=== PATIENT | male | born 1960 | race Hispanic/Latino ===

== ENCOUNTER 2019-03-03 21:36 | Emergency (ER) | payer MEDICARE ==
[2019-03-03] MEDS ORDERED: NA CHLORIDE 0.9% 2,000 ML ONE (22:15)
[2019-03-03] MEDS ORDERED: HYDROCODONE/APAP 5/325 MG TAB ONE (22:15)
[2019-03-03 22:42] LABS: Absolute Lymphocytes (CBC) 1.8 K/uL (0.7-4.9); Basophils % 0.5 % (0-1.3); Hematocrit 41.3 % (39.6-49.0); Lymphocytes % 15.7 % (15.3-44.8); MPV 8.5 fL (7.6-11.3); RBC Red Blood Cell Count 4.66 M/uL (4.33-5.43)
[2019-03-03 22:51] LABS: BUN Blood Urea Nitrogen 27 mg/dL (7-18); Bicarbonate 23 mmol/L (21-32); Glucose Level 155 mg/dL (74-106); Potassium 3.6 mmol/L (3.5-5.1); Sodium Level 132 mmol/L (136-145)
[2019-03-03] MEDS ORDERED: CIPROFLOXACIN 400mg IV 400 MG/200 ML BAG IV ONE (23:34)
[2019-03-03] MEDS ORDERED: KETOROLAC 30 MG/ML INJ ONE (23:34)
--- NOTE | 2019-03-04 00:35 | EDPHYS ---
Physician Documentation [facility] Name: Josh Sanchez Age: 59 yrs Sex: Male : 1960 Arrival Date: 03/03/2019 Time: 21:38 Bed 13 Private MD: ED Physician Shukri Chapa HPI: 03/03 22:06 This 59 yrs old Male presents to ER via Ambulatory with complaints of Fever, rn Bodyache. 22:06 The patient reports fever, not measured (subjective). Onset: The symptoms/episode rn began/occurred yesterday. Modifying factors: there are no obvious modifying factors. Associated signs and symptoms: Pertinent positives: arthralgias, chills, Pertinent negatives: abdominal pain, altered mental status, chest pain, cough, headache, hemoptysis, runny nose, skin rash, shortness of breath, swelling, vomiting. Severity of symptoms: At their worst the symptoms were mild in the emergency department the symptoms are unchanged. The patient has experienced similar episodes in the past. Reports came "for everything". States has had 2-3 weeks of increased joint pains, states has bad arthritis, and has been like this for years, worse over last 3 weeks, no focal joint pain or problems. Also reports feeling feverish since yesterday, no runny nose/ear pain/chest pain/abd pain/cough/sob/rash. Reports doesn't take diabetic meds as prescribed, and glucose has been running high. States normal for his glucose to run in 300s-500s. Only on metformin and doesn't take it regularly. . Historical: - Allergies: 22:06 No Known Allergies; lp1 - Home Meds: 22:06 Metformin Oral [Active]; Glimepiride Oral [Active]; lp1 - PMHx: 22:06 Diabetes - NIDDM; lp1 - PSHx: 22:06 Hernia repair; lp1 - Immunization history:: Adult Immunizations up to date. - Social history:: Smoking status: Patient/guardian denies using tobacco. - Ebola Screening: : No symptoms or risks identified at this time. - Family history:: not pertinent. - Hospitalizations: : No recent hospitalization is reported. 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 Exam: 22:06 Constitutional: This is a well developed, well nourished patient who is awake, alert, rn and in no acute distress. Head/Face: Normocephalic, atraumatic. Eyes: Pupils equal round and reactive to light, extra-ocular motions intact. Lids and lashes normal. Conjunctiva and sclera are non-icteric and not injected. Cornea within normal limits. Periorbital areas with no swelling, redness, or edema. ENT: dry MM, no swelling or lesions. Neck: Trachea midline, no thyromegaly or masses palpated, and no cervical lymphadenopathy. Supple, full range of motion without nuchal rigidity, or vertebral point tenderness. No Meningismus. Cardiovascular: Tachycardic, regular, no murmur Respiratory: Lungs have equal breath sounds bilaterally, clear to auscultation. No increased work of breathing, no retractions or nasal flaring. Abdomen/GI: soft, non-tender Skin: Warm, dry, no evidence of cellulitis. MS/ Extremity: Pulses equal, no cyanosis. Neurovascular intact. Full, normal range of motion. Equal circumference. Neuro: Awake and alert, GCS 15, oriented to person, place, time, and situation. Cranial nerves II-XII grossly intact. Motor strength 5/5 in all extremities. Sensory grossly intact. Cerebellar exam normal. Normal gait. 22:44 ECG was reviewed by the Attending Physician. rn Vital Signs: 22:05 BP 145 / 93; Pulse 128; Resp 18; Temp 99.2(O); Pulse Ox 100% on R/A; Weight 104.33 kg; lp1 Height 5 ft. 6 in. (167.64 cm); Pain 8/10; 23:08 BP 130 / 80; Pulse 113; Resp 16; Pulse Ox 97% on R/A; jb4 23:45 BP 136 / 81; Pulse 109; Resp 16; Pulse Ox 97% on R/A; jb4 03/04 01:15 BP 136 / 82; Pulse 100; Resp 16; Pulse Ox 97% on R/A; jb4 03/03 22:05 Body Mass Index 37.12 (104.33 kg, 167.64 cm) lp1 MDM: 03/03 21:55 Patient medically screened. rn 23:50 Differential diagnosis: viral Infection, bacterial infection, URI, UTI. Data reviewed: rn vital signs, nurses notes, lab test result(s), EKG, and as a result, I will discharge patient. Counseling: I had a detailed discussion with the patient and/or guardian regarding: the historical points, exam findings, and any diagnostic results supporting the discharge/admit diagnosis, lab results, the need for outpatient follow up, to return to the emergency department if symptoms worsen or persist or if there are any questions or concerns that arise at home. Response to treatment: the patient's symptoms have mildly improved after treatment, and as a result, I will discharge patient. Special discussion: I discussed with the patient/guardian in detail that at this point there is no indication for admission to the hospital. It is understood, however, that if the symptoms persist or worsen the patient needs to return immediately for re-evaluation. Based on the history and exam findings, there is no indication for further emergent testing or inpatient evaluation. 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 I discussed with the patient/guardian the need to see the primary care provider for further evaluation of the symptoms. ED course: + UTI, glucose only 170 and neg ketones, no acidosis, improving HR with fluids. Will dc home with abx and return precautions. Recommended fluids, taking diabetic medication, and f/u with pcp for further care. Chronic arthritis that was worse today, told him narcotic pain medication not the solution at this point, and if motrin and other anti-inflammatories dont work then pain management would be in his future, especially given that there have not been any acute joint changes. . 03/03 22:06 Order name: Ketone, Serum rn 03/03 22:06 Order name: CBC with Diff rn 03/03 22:06 Order name: Basic Metabolic Panel; Complete Time: 23:05 rn 03/03 22:06 Order name: Flu; Complete Time: 22:49 rn 03/03 22:06 Order name: Strep; Complete Time: 22:49 rn 03/03 22:06 Order name: Acetone Level; Complete Time: 23:05 EDMS 03/03 22:06 Order name: CBC with Automated Diff; Complete Time: 22:49 EDMS 03/03 22:09 Order name: NOVA jb4 03/03 22:09 Order name: Glucose, Ancillary (Novameter); Complete Time: 22:44 EDMS 03/03 22:50 Order name: Throat Culture EDMS 03/03 23:29 Order name: Urine Dipstick--Ancillary (enter results) em1 03/03 22:06 Order name: IV Start; Complete Time: 22:30 rn 03/03 22:06 Order name: Glucose Level; Complete Time: 22:07 rn 03/03 22:06 Order name: Urine Dipstick-Ancillary (obtain specimen); Complete Time: 23:29 rn 03/03 22:06 Order name: EKG; Complete Time: 22:07 rn 03/03 22:06 Order name: EKG - Nurse/Tech; Complete Time: 22:30 rn EC:44 Rate is 115 beats/min. Rhythm is regular. QRS [place] is Normal. SD interval is normal. rn QRS interval is normal. QT interval is normal. No Q waves. T waves are Normal. No ST changes noted. Clinical impression: Sinus tachycardia. Interpreted by me. Reviewed by me. Administered Medications: 22:06 CANCELLED (Duplicate Order): Tylenol 650 mg PO once rn 22:35 Drug: NS 0.9% 1000 ml Route: IV; Rate: 1000 ml; Site: left antecubital; 4 03/04 00:44 Follow up: Response: No adverse reaction; IV Status: Completed infusion; IV Intake: jb4 1000ml 03/03 22:35 Drug: NS 0.9% 1000 ml Route: IV; Rate: 1000 ml; Site: left antecubital; jb4 03/04 00:44 Follow up: Response: No adverse reaction; IV Status: Completed infusion; IV Intake: jb4 1000ml 03/03 22:35 Drug: [place] 5 mg-325 mg 2 tabs Route: PO; jb4 23:00 Follow up: Response: No adverse reaction 4 23:46 Drug: TORadol - Ketorolac 15 mg Route: IVP; Site: left antecubital; jb4 03/04 00:10 Follow up: Response: No adverse reaction; Pain is decreased jb4 03/03 23:47 Drug: Cipro 400 mg Volume: 200 ml; Route: IVPB; Infused Over: 60 mins; Site: left jb4 antecubital; 03/04 00:47 Follow up: IV Status: Completed infusion; IV Intake: 200ml 4 00:43 Drug: NS 0.9% 500 ml Route: IV; Rate: bolus; Site: left antecubital; 4 01:15 Follow up: Response: No adverse reaction; IV Status: Completed infusion; IV Intake: jb4 500ml Disposition: 03/03/19 23:54 Discharged to Home. Impression: Urinary tract infection, site not specified, Dehydration, Osteoarthritis, unspecified site. - Condition is Stable. - Discharge Instructions: Arthritis, Dehydration, Adult, Urinary Tract Infection, Adult. - Prescriptions for Cipro 500 mg Oral Tablet - take 1 tablet by ORAL route every 12 hours for 10 days; 20 tablet. - Medication Reconciliation Form, Thank You Letter, Antibiotic Education, Prescription Opioid Use form. - Follow up: Private Physician; When: As needed; Reason: Recheck today's complaints, Re-evaluation by your physician. - Problem is an ongoing problem. - Symptoms have improved. Signatures: Dispatcher [employer] EDMS Shukri Chapa MD MD rn Pena, Laura, RN RN lp1 Ming Lim RN RN jb4 Corrections: (The following items were deleted from the chart) 03/03 22:06 22:06 Tylenol 650 mg PO once ordered. rn mony 03/04 01:32 03/03 23:54 03/03/2019 23:54 Discharged to Home. Impression: Urinary tract infection, jb4 site not specified; Dehydration; Osteoarthritis, unspecified site. Condition is Stable. Forms are Medication Reconciliation Form, Thank You Letter, Antibiotic Education, Prescription Opioid Use. Follow up: Private Physician; When: As needed; Reason: Recheck today's complaints, Re-evaluation by your physician. Problem is an ongoing problem. Symptoms have improved. rn
--- NOTE | 2019-03-04 00:35 | ER ---
Nurse's Notes [facility] Name: Josh Sanchez Age: 59 yrs Sex: Male : 1960 Arrival Date: 03/03/2019 Time: 21:38 Bed 13 Private MD: Diagnosis: Urinary tract infection, site not specified;Dehydration;Osteoarthritis, unspecified site Presentation: 03/03 22:04 Presenting complaint: Patient states: general body aches x 3 weeks, states feeling hot lp1 all over, fever-like that began today; unsure if blood sugar has been high. Transition of care: patient was not received from another setting of care. Onset of symptoms was March 03, 2019. Risk Assessment: Do you want to hurt yourself or someone else? Patient reports no desire to harm self or others. Initial Sepsis Screen: Does the patient meet any 2 criteria? No. Patient's initial sepsis screen is negative. Does the patient have a suspected source of infection? No. Patient's initial sepsis screen is negative. Care prior to arrival: None. 22:04 Method Of Arrival: Ambulatory lp1 22:04 Acuity: KAYDEN 3 lp1 Historical: - Allergies: 22:06 No Known Allergies; lp1 - Home Meds: 22:06 Metformin Oral [Active]; Glimepiride Oral [Active]; lp1 - PMHx: 22:06 Diabetes - NIDDM; lp1 - PSHx: 22:06 Hernia repair; lp1 - Immunization history:: Adult Immunizations up to date. - Social history:: Smoking status: Patient/guardian denies using tobacco. - Ebola Screening: : No symptoms or risks identified at this time. - Family history:: not pertinent. - Hospitalizations: : No recent hospitalization is reported. Screenin:06 Abuse screen: Denies threats or abuse. Denies injuries from another. Nutritional lp1 screening: No deficits noted. Tuberculosis screening: No symptoms or risk factors identified. Fall Risk None identified. Assessment: 22:10 General: Appears in no apparent distress. uncomfortable, Behavior is calm, cooperative, jb4 appropriate for age. Pain: Complains of pain in Joints Pain does not radiate. Pain currently is 10 out of 10 on a pain scale. Quality of pain is described as aching. Neuro: Level of Consciousness is awake, alert, obeys commands, Oriented to person, place, time, situation. Cardiovascular: Patient's skin is warm and dry. Respiratory: Airway is patent Respiratory effort is even, unlabored, Respiratory pattern is regular, symmetrical. GI: No deficits noted. No signs and/or symptoms were reported involving the gastrointestinal system. : No deficits noted. No signs and/or symptoms were reported regarding the genitourinary system. EENT: No deficits noted. No signs and/or symptoms were reported regarding the EENT system. Derm: Skin is intact, Skin is pink, warm \T\ dry. Musculoskeletal: Circulation, motion, and sensation intact. Range of motion: intact in all extremities. 23:08 Reassessment: Patient appears in no apparent distress at this time. Patient and/or jb4 family updated on plan of care and expected duration. Pain level reassessed. Patient is alert, oriented x 3, equal unlabored respirations, skin warm/dry/pink. 03/04 00:00 Reassessment: Patient appears in no apparent distress at this time. Patient and/or jb4 family updated on plan of care and expected duration. Pain level reassessed. Patient is alert, oriented x 3, equal unlabored respirations, skin warm/dry/pink. D/c pending completion of IV fluids. 01:19 Reassessment: Patient appears in no apparent distress at this time. Patient and/or jb4 family updated on plan of care and expected duration. Pain level reassessed. Patient is alert, oriented x 3, equal unlabored respirations, skin warm/dry/pink. PT verbalized understanding of d/c and follow up instructions. Ambulated out of ED with family with steady gait. Patient states feeling better. Vital Signs: 03/03 22:05 BP 145 / 93; Pulse 128; Resp 18; Temp 99.2(O); Pulse Ox 100% on R/A; Weight 104.33 kg; lp1 Height 5 ft. 6 in. (167.64 cm); Pain 12/27; 23:08 BP 130 / 80; Pulse 113; Resp 16; Pulse Ox 97% on R/A; jb4 23:45 BP 136 / 81; Pulse 109; Resp 16; Pulse Ox 97% on R/A; jb4 03/04 01:15 BP 136 / 82; Pulse 100; Resp 16; Pulse Ox 97% on R/A; jb4 03/03 22:05 Body Mass Index 37.12 (104.33 kg, 167.64 cm) lp1 ED Course: 03/03 21:38 Patient arrived in ED. cl3 21:55 Shukri Chapa MD is Attending Physician. rn 22:05 Triage completed. lp1 22:05 Arm band placed on. lp1 22:10 Patient has correct armband on for positive identification. Placed in gown. Bed in low jb4 position. Call light in reach. Side rails up X 1. shelter monitor on. Pulse ox on. NIBP on. 22:15 Inserted saline lock: 20 gauge in left antecubital area, using aseptic technique. Blood mw2 collected. 22:30 NOVA Sent. mw2 22:40 Ming Lim, RN is Primary Nurse. jb4 03/04 01:29 No provider procedures requiring assistance completed. IV discontinued, intact, jb4 bleeding controlled, No redness/swelling at site. Pressure dressing applied. Administered Medications: 03/03 22:06 CANCELLED (Duplicate Order): Tylenol 650 mg PO once rn 22:35 Drug: NS 0.9% 1000 ml Route: IV; Rate: 1000 ml; Site: left antecubital; jb4 03/04 00:44 Follow up: Response: No adverse reaction; IV Status: Completed infusion; IV Intake: jb4 1000ml 03/03 22:35 Drug: NS 0.9% 1000 ml Route: IV; Rate: 1000 ml; Site: left antecubital; jb4 03/04 00:44 Follow up: Response: No adverse reaction; IV Status: Completed infusion; IV Intake: jb4 1000ml 03/03 22:35 Drug: [place] 5 mg-325 mg 2 tabs Route: PO; jb4 23:00 Follow up: Response: No adverse reaction jb4 23:46 Drug: TORadol - Ketorolac 15 mg Route: IVP; Site: left antecubital; jb4 03/04 00:10 Follow up: Response: No adverse reaction; Pain is decreased jb4 03/03 23:47 Drug: Cipro 400 mg Volume: 200 ml; Route: IVPB; Infused Over: 60 mins; Site: left jb4 antecubital; 03/04 00:47 Follow up: IV Status: Completed infusion; IV Intake: 200ml 4 00:43 Drug: NS 0.9% 500 ml Route: IV; Rate: bolus; Site: left antecubital; jb4 01:15 Follow up: Response: No adverse reaction; IV Status: Completed infusion; IV Intake: jb4 500ml Intake: 00:44 IV: 1000ml; Total: 1000ml. jb4 00:44 IV: 1000ml; Total: 2000ml. jb4 00:47 IV: 200ml; Total: 2200ml. jb4 01:15 IV: 500ml; Total: 2700ml. jb4 Outcome: 03/03 23:54 Discharge ordered by . rn 03/04 01:29 Discharged to home ambulatory, with family. jb4 Condition: stable Discharge instructions given to patient, family, Instructed on discharge instructions, follow up and referral plans. medication usage, Demonstrated understanding of instructions, follow-up care, medications, Prescriptions given X 1. 01:32 Patient left the ED. jb4 Signatures: Shukri Chapa MD MD rn Pena, Laura, RN RN lp1 Ming Lim RN RN jb4 Reinaldo Khan 2 David Suárez cl3 Corrections: (The following items were deleted from the chart) 03/03 23:47 23:46 TORadol - Ketorolac 15 mg IVP in right antecubital jb4 jb4
[2019-03-04] MEDS ORDERED: NA CHLORIDE 0.9% 500 ML ONE (00:39)
[2019-03-04 01:10] LABS: Urine Glucose NEGATIVE (NEG)
[2019-03-04 01:11] LABS: Urine Blood 2+ (NEG); Urine Protein 2+ (NEG); Urine pH 5.5 (5.0-7.0)
[2019-03-04 01:38] VITALS: TEMP 99.2
[2019-03-04 01:39] VITALS: O2SAT 97
[2019-03-04 01:41] VITALS: BP 136/82
--- NOTE | 2019-03-04 09:34 | EKG ---
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
== END 2019-03-04 01:32 | disposition home or self-care (01) ==
LOC: ER 21:36
DX: N39.0 Urinary tract infection, site not specified (principal); E86.0 Dehydration; M19.90 Unspecified osteoarthritis, unspecified site
CPT/HCPCS: 96365; 96361; 93005; 87070; 85025; 80048; 36415; 82010; 82962; 87081; 81003; 87804 ×2; 96375; 99284; J7040; J7030; J0744

== ENCOUNTER 2022-11-03 21:02 | Emergency (ER) | payer MEDICARE ==
--- OUTSIDE RECORDS SUMMARY | 2022-11-03 21:17 | XMS REPORT | Continuity of Care Document ---
:1960 Author Organization [facility] t Address [address] [facility] [address] [place] [address] Care Team Providers Name Role Phone RIAZ ABARCA Attending Clinician Unavailable Morris NEW, Riaz Candelaria Attending Clinician Kodak Holman CRNA Attending Clinician Stacy NEW, Angel Attending Clinician Only, Adc Test Attending Clinician Unavailable Doctor Unassigned, [place] Attending Clinician Unavailable Tammy Molina MD Attending Clinician [phone] Pob, Adc Lab Main Attending Clinician Unavailable RIAZ ABARCA Admitting Clinician Unavailable Riaz Abarca MD Admitting Clinician Payers Payer Name Policy Type Policy Number Effective Date Expiration Date Anton silvestreruss TAISHA/JOE [id number] 2019 MEDICARE ADVANTAGE 00:00:00 Problems Condition Condition Condition Status Onset Resolution Last Treating Co mments Source Name Details Category Date Date Treatment Clinician Date Obesity Obesity Disease Active Univers (BMI (BMI 7-29 ity of 30-39.9) 30-39.9) 00:00: [address] Allergies, Adverse Reactions, Alerts Allergy Allergy Status Severity Reaction(s) Onset Inactive Treating Comm ents Source Name Type Date Date Clinician NO KNOWN Drug Active Univers ALLERGIE Class ity of S [facility] Social History Social Habit Start Date Stop Date Quantity Comments Source Sex Assigned At [facility] y of [facility] Exposure to Not sure University SARS-CoV-2 [facility] (event) Branch Tobacco Comment 2019-12-15 2019-12-15 quit 10 years Univer sity of 00:00:00 00:00:00 ago [facility] Smoking Status Start Date Stop Date Source Unknown if ever smoked [facility] Former smoker 2019-12-15 00:00:00 2019-12-15 00:00:[address] [facility] Medications Ordered Filled Start Stop Current Ordering Indication Dosage Frequency Signature Comments Components Source Medication Medication Date Date Medication? Clinician (SIG) Name Name metformin 2020-0 Yes Take by Unive rs HCl 7-29 mouth. ity of (METFORMIN 17:03: [place] ORAL) 04 [facility] Branch GLIMEPIRIDE 2020-0 Yes Take by Uni vers ORAL 7-29 mouth. ity of 17:03: [place] 04 [facility] Branch ibuprofen 2020-0 Yes 400mg Take 400 Uni vers 400 mg 7-29 mg by ity of tablet 17:03: mouth [place] 04 every 6 Medical (six) Branch hours as needed. metformin 2020-0 Yes Take by Unive rs HCl 7-29 mouth. ity of (METFORMIN 15:09: [place] ORAL) 54 [facility] Branch GLIMEPIRIDE 2020-0 Yes Take by Uni vers ORAL 7-29 mouth. ity of 15:09: [place] 54 [facility] Branch ibuprofen 2020-0 Yes 400mg Take 400 Uni vers 400 mg 7-29 mg by ity of tablet 15:09: mouth [place] 54 every 6 Medical (six) Branch hours as needed. eye block 2020-0 Yes PRN, Univers syringe 12-15 Starting ity o f mL 14:48: Sat [place] 12/16/19 at [facility] [address] Until Discontinu ed, Intra-op eye block 2020-0 Yes PRN, Univers syringe 12-15 Starting ity o f mL 14:42: Sat [place] 12/16/19 at [facility] [address]42[facility] Until Discontinu ed, Intra-op propofol IV 2019-0 2020- No Intravenou Univers infusion 12-15 s, ONCE ity of 14:30: 15:03 INTRA [place] 00 :26 PROCEDURE, [facility] Branch Sat12/16/19 at 0930, Until Sat12/16/19 at 1003, Routine, Intra-op remifentani 2019-0 2020- No Intravenou Univers l (ULTIVA) 12-15 s, ONCE ity o f injection 14:24: 15:03 INTRA [place] 00 :26 PROCEDURE, [facility] Sat12/16/19 at 0924, Until Sat12/16/19 at 1003, Routine, Intra-op midazolam 2020-0 2020- No IV Push, Uni vers (VERSED) 12-15 ONCE INTRA ity of injection 14:23: 15:03 PROCEDURE, [place] 00 :26 Starting Medical [facility] 12/16/19 at 0923, Until [facility] 12/16/19 at 1003, Routine, Intra-op lactated 2020-0 2020- No IV Univers ringers IV 12-15 Infusion, ity of infusion 14:22: 15:03 CONTINUOUS [place] 00 :26 PRN, Medical Starting [facility] 12/16/19 at 0922, Until [facility] 12/16/19 at 1003, Routine, Intra-op mydriatic 2020-0 2020- No .5mL 0.5 mL, [facility] [place] ers #5 12-15 Right Eye, ity of ophthalmic 13:00: 13:00 ONCE, 1 [place] as solution 00 :00 dose, [facility] Medica l 0.5 mL 12/16/19 at [place] syringe 0800, Routine, DSU Pre-op lactated 2020-0 2020- No 1000mL at 20 [facility] rs ringers IV 12-15 mL/hr, ity of infusion 13:00: 12:58 1,000 mL, [place] as 1,000 mL 00 :00 IV Medical Infusion, [place] ONCE, 1 dose, [facility] 12/16/19 at 0800, Routine, DSU Pre-op water for 2019-0 Yes PRN, Univers irrigation 12-15 Starting ity o f irrigation 12:56: Sat [place] solution 12/16/19 at Medic al 0756, [place] Until Discontinu ed, Routine, Intra-op sodium 2019-0 Yes PRN, Univers chloride 12-15 Starting ity of (NS) 12:55: Sat [place] injection 12/16/19 at Medi elie 0755, [place] Until Discontinu ed, Routine, Intra-op neomycin-po 2019-0 Yes PRN, [facility] s lymyxin-dex 12-15 Starting ity of amethasone 12:55: Sat [place] (MAXITROL) 12/16/19 at Med ical 3.5 0755, [place] mg/g-10,000 Until unit/g-0.1 Discontinu % ed, ophthalmic Routine, ointment Intra-op Hyaluronida 2019-0 Yes PRN, Univer s se, Human 12-15 Starting ity of [place]. 12:55: Sat (HYLENEX) 12/16/19 at [facility] elie injection 0755, Branch Until Discontinu ed, Routine, Intra-op gentamicin 2020-0 Yes PRN, Univers injection 12-15 Starting ity of 12:54: Sat12/16/19 at [place] [address], Branch Until Discontinu ed, LJ, Intra-op eye block 2020-0 Yes PRN, Univers syringe 11 12-15 Starting ity o f mL 12:54: Sat12/16/19 at [place] [address], Branch Until Discontinu ed, Intra-op EPINEPHrine 2020-0 Yes PRN, Univer s 1:1,000 (1 12-15 Starting ity o f mg/mL) 12:54: Sat (ADRENALIN) 12/16/[address] [facility], Branch Until Discontinu ed, Routine, Intra-op DUOVISC 2020-0 Yes PRN, Univers (DUOVISC 12-15 Starting ity of VISCO 12:54: Sat ELASTIC) 3 12/16/19 at [facility] ical %-4 %(0.5 0754, Branch mL) 1 % Until (0.55 mL) Discontinu intraocular ed, injection Routine, Intra-op dexamethaso 2020-0 Yes PRN, Univer s ne 12-15 Starting ity of (DECADRON 12:54: Sat PHOSPHATE) 12/16/19 at [facility] ical injection 0754, Branch Until Discontinu ed, Routine, Intra-op ceFAZolin 2020-0 Yes PRN, Univers (ANCEF) 12-15 Starting ity of injection 12:53: Sat12/16/19 at [place] [address], Branch Until Discontinu ed, LJ, Intra-op carbachoL 2020-0 Yes PRN, Univers (MIOSTAT) 12-15 Starting ity of 0.01 % 12:53: Sat intraocular 12/16/[address] [facility], Branch Until Discontinu ed, Routine, Intra-op balanced 2020-0 Yes PRN, Univers salt irrig 12-15 Starting ity o f soln comb1 12:53: Sat (BSS PLUS) 12/16/19 at [facility] ical ophthalmic [facility], Branch solution Until 500 mL bag Discontinu ed, Routine, Intra-op metformin 2020-0 Yes Take by Unive rs HCl 7-28 mouth. ity of (METFORMIN 16:00: [place] ORAL) Medical Branch GLIMEPIRIDE 2020-0 Yes Take by Uni vers ORAL 7-28 mouth. ity of 16:00: [place] [address] Medical Branch ibuprofen 2020-0 Yes 400mg Take 400 Uni vers 400 mg 7-28 mg by ity of tablet 16:00: mouth [place] [address] every 6 Medical (six) Branch hours as needed. metformin 2020-0 Yes Take by Unive rs HCl 7-28 mouth. ity of (METFORMIN 16:00: [place] ORAL) Medical Branch GLIMEPIRIDE 2020-0 Yes Take by Uni vers ORAL 7-28 mouth. ity of 16:00: [place] [address] Medical Branch ibuprofen 2020-0 Yes 400mg Take 400 Uni vers 400 mg 7-28 mg by ity of tablet 16:00: mouth [place] [address] every 6 Medical (six) Branch hours as needed. metformin 2020-0 Yes Take by Unive rs HCl 7-28 mouth. ity of (METFORMIN 16:00: [place] ORAL) [facility] Branch GLIMEPIRIDE 2019-0 Yes Take by Uni vers ORAL 7-28 mouth. ity of 16:00: [place] [address] Medical Branch ibuprofen 2020-0 Yes 400mg Take 400 Uni vers 400 mg 7-28 mg by ity of tablet 16:00: mouth [place] [address] every 6 Medical (six) Branch hours as needed. No known No Univers medications [facility] No known No Univers medications [facility] [place] No known No Univers medications [facility] [place] No known No Univers medications [facility] [place] No known No Univers medications [facility] [place] No known No Univers medications [facility] Vital Signs Vital Name Observation Time Observation Value Comments Source Systolic blood 2019-12-16 15:35:00 170 mm[Hg] Univer sity of pressure [facility] Diastolic blood 2019-12-16 15:35:00 80 mm[Hg] Unive rsity of pressure [facility] Heart rate 2019-12-16 15:35:00 68 /min Universi ty [facility] Respiratory rate 2019-12-16 15:35:00 18 /min [facility] Oxygen saturation in 2019-12-16 15:15:00 99 /min University of Arterial blood by [facility] Pulse oximetry Branch Body temperature 2019-12-16 15:10:00 36.67 Vero [facility] Body weight 2019-12-15 15:00:00 104.327 [facility] BMI 2019-12-15 15:00:00 39.46 kg/m2 [facility] Body height 2019-12-04 16:11:00 162.6 cm [facility] Respiratory rate 2019-12-16 15:03:00 9 /min [facility] Procedures Procedure Date / Time Performed Performing Clinician Sourc e POCT GLUCOSE(AGE 2019-12-16 12:57:00 [facility] Medical Branch ASSIGNMENT OF BENEFITS 2019-12-15 16:20:07 Doctor Unassigned, No [facility] CONSENT/REFUSAL FOR 2019-12-07 20:19:50 Doctor Unassigned, No [facility] Medical Branch TREATMENT ASSIGNMENT OF BENEFITS 2019-12-07 20:19:34 Doctor Unassigned, No [facility] NOTICE OF PRIVACY 2019-12-07 20:19:15 Doctor Unassigned, No Univ [facility] Medical [place] CONSENT/REFUSAL FOR 2019-12-07 20:19:04 Doctor Unassigned, No [facility] Medical Branch TREATMENT ASSIGNMENT OF BENEFITS 2019-12-07 20:18:48 Doctor Unassigned, No [facility] PHYSICIAN ORDERS 2019-12-07 05:01:00 Doctor Unassigned, No [facility] Start End Encounter Admission Attending Care Care Encounter Source Date/Time Date/Time Type Type Clinicians Facility Department ID 2021-03-17 Outpatient R MORRIS [facility] OMAR [id number] Univers 09:17:[address] [facility] 2019-12-16 2019-12-16 [facility] Morris WVCONCETTA [id number] Univers 07:38:00 11:00:00 Encounter Riaz Worley [id number] it[place] rosibel [id number] [place] [id number] Med [facility] 071 Branch 2019-12-16 2019-12-16 Anesthesia Kodak Holman [facility] [id number] Univers 09:22:00 10:03:00 Angel Kumar [id number] [place] [id number] [place] [id number] [address] 2019-12-15 2019-12-15 Outpatient R [facility] [id number] Univers 11:45:00 11:45:00 ity of [facility] 2019-12-15 2019-12-15 Laboratory Only, Adc Test [facility] [id number] Univers 11:23:15 11:36:05 Only Riaz Abarca 350.1.13.1 0 [id number] [place] [id number] [facility] [address] [place] 2019-12-15 2019-12-15 Orders Doctor DEJA [id number] Univers 00:00:00 00:00:00 Only Unassigned, LINDA [id number] ity of [place] [facility] [id number] [place] [id number] [facility] 009 [place] 2019-12-09 2019-12-09 [facility] [id number] Univers 00:00:00 00:00:00 Tammy Worley [id number] [id number] [id number] In dical nal 231 [facility] 2019-12-07 2019-12-07 Ivf Embryologist Tania, Adc Lab Main [facility] 1.2.8 [id number] [id number] Univers 15:13:48 15:42:09 Visit Riaz Abarca 350.1.13.1 0 [id number] [id number] In dical nal 353 [facility] 2019-12-07 2019-12-07 [facility] [id number] Univers 10:30:00 10:30:[address] [facility] Results Test Description Test Time Test Comments Results Result Comments Source POCT Glucose 2019-12-16 12:57:00 Test Item Value Reference Range Interpretation Comme nts POCT Glu (age>30days) (test code = 3342) 187 mg/dL 70-110 A Lab Interpretation (test code = 87339-2) Abnormal [facility]
[2022-11-03 21:54] LABS: Absolute Lymphocytes (CBC) 1.1 K/uL (0.7-4.9); Hematocrit 38.6 % (39.6-49.0); MPV 7.7 fL (7.6-11.3); RBC Red Blood Cell Count 4.48 M/uL (4.33-5.43)
[2022-11-03 21:59] LABS: Protime INR 1.09
[2022-11-03 22:15] LABS: Albumin 3.2 g/dL (3.4-5.0); Bilirubin Direct 0.1 mg/dL (0-0.2); Bilirubin Indirect, Calculated 0.4 mg/dL (0.2-0.8); Bilirubin Total 0.5 mg/dL (0.2-1.0); Magnesium 1.9 mg/dL (1.6-2.4); Potassium 3.8 mEq/L (3.5-5.1); Troponin High Sensitivity 7.3 pg/mL (<58.9)
[2022-11-03 22:30] LABS: SARS-CoV-2 Antigen Rapid Res Negative (Negative)
[2022-11-03] MEDS ORDERED: ACETAMINOPHEN 500 MG TAB ONE (22:37)
[2022-11-03] MEDS ORDERED: NA CHLORIDE 0.9% 1,000 ML ONE (22:38)
--- NOTE | 2022-11-03 22:45 | RAD REPORT ---
EXAM DESCRIPTION: RAD - Chest Single View - 11/03/2022 10:30 pm CLINICAL HISTORY: pain all over Chest pain. COMPARISON: ABDOMEN 1 VIEW KUB dated 05/17/2008; CHEST SINGLE VIEW dated 02/04/2008 FINDINGS: Portable technique limits examination quality. The lungs are grossly clear. The heart is normal in size. No displaced fractures. IMPRESSION: No acute intrathoracic process suspected.
--- NOTE | 2022-11-04 01:00 | EDPHYS ---
Physician Documentation [facility] Name: Josh Sanchez Age: 62 yrs Sex: Male : 1960 Arrival Date: 11/03/2022 Time: 21:02 Bed 14 Private MD: ED Physician Kings Bah HPI: 11/03 21:35 This 62 yrs old Male presents to ER via Ambulatory with complaints of Pain All cp Over, Headache. 21:35 The patient complains of pain to the top of head and forehead. The patient describes cp the headache as aching, waxing and waning. Onset: The symptoms/episode began/occurred 1 week(s) ago. 21:35 Associated signs and symptoms: Pertinent positives: fever, pain all over, Pertinent cp negatives: altered mental status, rash, vomiting, weakness. Severity of symptoms: in the emergency department the pain is unchanged, despite home interventions. Headache History: The patient has had previous headaches and this one is similar to previous episodes. Historical: - Allergies: 21:24 No Known Allergies; as6 - PMHx: 21:24 Diabetes - NIDDM; as6 21:24 Hypertensive disorder; as6 - Immunization history:: Client reports receiving the 2nd dose of the Covid vaccine. - Social history:: Smoking status: Patient/guardian denies using tobacco. ROS: 21:40 Constitutional: Positive for body aches, pain all over, Negative for fever, poor PO cp intake. 21:40 Eyes: Negative for injury, pain, redness, and discharge. cp 21:40 ENT: Negative for drainage from ear(s), ear pain, sore throat, difficulty swallowing, difficulty handling secretions. 21:40 Cardiovascular: Negative for chest pain, edema, palpitations. 21:40 Respiratory: Negative for cough, shortness of breath, wheezing. 21:40 Abdomen/GI: Negative for vomiting, diarrhea, constipation, black/tarry stool, rectal bleeding. 21:40 : Negative for urinary symptoms. 21:40 Neuro: Positive for headache, Negative for altered mental status, dizziness, syncope, weakness. 21:40 All other systems are negative. Exam: 21:45 Constitutional: The patient appears in no acute distress, alert, awake, cp non-diaphoretic, non-toxic, well developed, well nourished. 21:45 Head/Face: Normocephalic, atraumatic. cp 21:45 Eyes: Periorbital structures: appear normal, Pupils: equal, round, and reactive to light and accomodation, Extraocular movements: intact throughout, Conjunctiva: normal, no exudate, no injection, Sclera: no appreciated abnormality, Lids and lashes: appear normal, bilaterally. 21:45 ENT: External ear(s): are unremarkable, Nose: is normal, Mouth: Lips: moist, Oral mucosa: pink and intact, moist, Posterior pharynx: is normal, airway is patent, no erythema, no exudate. 21:45 Neck: ROM/movement: is normal, is supple, without pain, no range of motions limitations. 21:45 Chest/axilla: Inspection: normal. 21:45 Cardiovascular: Rate: tachycardic, Rhythm: regular, Edema: is not appreciated, JVD: is not appreciated. 21:45 Respiratory: the patient does not display signs of respiratory distress, Respirations: normal, no use of accessory muscles, no retractions, labored breathing, is not present, Breath sounds: are clear throughout, no decreased breath sounds, no stridor, no wheezing. 21:45 Abdomen/GI: Inspection: abdomen appears normal, Bowel sounds: active, all quadrants, Palpation: abdomen is soft and non-tender, in all quadrants. 21:45 Back: CVA tenderness, is absent. 21:45 Skin: cellulitis, is not appreciated, no rash present. 21:45 Neuro: Orientation: to person, place \T\ time. Mentation: is normal, Cerebellar function: is grossly normal, Motor: moves all fours, strength is normal, Sensation: no obvious gross deficits. 22:05 ECG was reviewed by the Attending Physician. cp Vital Signs: 21:22 BP 148 / 80; Pulse 117; Resp 18 S; Temp 99.3(TE); Pulse Ox 95% on R/A; Weight 90.72 kg as6 (R); Height 5 ft. 3 in. (R); 22:07 BP 129 / 77; Pulse 117; Resp 20 S; Pulse Ox 97% on R/A; aa9 22:45 BP 134 / 82; Pulse 112; Resp 18; Pulse Ox 97% on R/A; aa9 23:15 BP 127 / 71; Pulse 102; Resp 18 S; Pulse Ox 97% ; aa9 11/04 00:15 BP 121 / 74; Pulse 98; Resp 18; Pulse Ox 95% on R/A; aa9 00:30 BP 128 / 71; Pulse 99; Resp 19 S; Pulse Ox 96% on R/A; aa9 01:08 BP 128 / 75; Pulse 94; Resp 16; Temp 98.6; Pulse Ox 97% on R/A; aa9 11/03 21:22 Body Mass Index 35.43 (90.72 kg, 160.02 cm) as6 MDM: 11/03 21:28 Patient medically screened. cp 22:00 Differential diagnosis: cerebral vascular accident, meningoencephalitis, migraine, cp neoplasm, subarachnoid bleed, subdural hematoma. 11/04 01:00 Data reviewed: vital signs, nurses notes, lab test result(s), EKG, radiologic studies, cp CT scan, plain films. 01:00 Consideration of Admission/Observation Escalation of care including cp admission/observation considered. I considered the following discharge prescriptions or medication management in the emergency department Medications were administered in the Emergency Department. See MAR. Care significantly affected by the following chronic conditions: Diabetes, Hypertension. 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 Response to treatment: the patient's symptoms have markedly improved after treatment, VSS. Headache improved. Discussed results of labs showing low serum sodium. Patient declines observation and fluids and requests discharge to f/u with pcp. Patient is making informed decisions. 11/03 21:27 Order name: Basic Metabolic Panel; Complete Time: 22:20 11/03 22:20 Interpretation: Normal except: NA 125; CO2 19; GLUC 232; BUN 26; GFR 65; CA 8.4. 11/03 21:27 Order name: CBC with Diff; Complete Time: 22:05 11/03 22:05 Interpretation: Normal except: HGB 13.2; HCT 38.6; ROMINA% 75.8; LYM% 13.0. 11/03 21:27 Order name: LFT's; Complete Time: 22:20 11/03 22:57 Interpretation: Normal except: ALK 164; ALB 3.2; GLOB 4.8; A/G 0.7. cp 11/03 21:27 Order name: Magnesium; Complete Time: 22:20 cp 11/03 21:27 Order name: PT-INR; Complete Time: 22:05 cp 11/03 21:27 Order name: Troponin HS; Complete Time: 22:20 cp 11/03 21:27 Order name: SARS RAPID; Complete Time: 22:57 cp 11/03 21:27 Order name: Influenza Screen (a \T\ B); Complete Time: 22:57 cp 11/03 21:27 Order name: Lactate w/ 2H reflex if indic.; Complete Time: 22:20 cp 11/04 00:10 Interpretation: Reviewed. 11/03 21:27 Order name: XRAY Chest (1 view); Complete Time: 22:57 cp 11/03 22:24 Order name: CT Head Brain wo Cont cp 11/03 21:27 Order name: EKG; Complete Time: 21:28 cp 11/03 21:27 Order name: Cardiac monitoring; Complete Time: 21:48 cp 11/03 21:27 Order name: EKG - Nurse/Tech; Complete Time: 22:03 cp 11/03 21:27 Order name: IV Saline Lock; Complete Time: 21:47 cp 11/03 21:27 Order name: Labs collected and sent; Complete Time: 21:47 cp 11/03 21:27 Order name: O2 Per Protocol; Complete Time: 21:47 cp 11/03 21:27 Order name: O2 Sat Monitoring; Complete Time: 21:47 cp EC/17 22:05 Rate is 114 beats/min. Rhythm is regular. PA interval is normal. QRS interval is cp normal. QT interval is normal. T waves are Inverted in lead aVR. Interpreted by me. Reviewed by me. Administered Medications: 22:43 Drug: NS 0.9% IV 1000 ml Route: IV; Rate: 500 ml/hr; Site: right antecubital; aa9 11/04 01:09 Follow up: Response: No adverse reaction; IV Status: Completed infusion; IV Intake: aa9 1000ml 11/03 22:43 Drug: Acetaminophen PO 1000 mg Route: PO; aa9 11/04 01:09 Follow up: Response: No adverse reaction aa9 Disposition: 19:27 Co-signature as Attending Physician, Kings Bah MD I agree with the assessment sp4 and plan of care. I reviewed the patient's care provided by the Advanced Practice Provider and agree with the diagnosis and treatment plan. Disposition Summary: 11/04/22 01:00 Discharge Ordered Location: Home cp Problem: new cp Symptoms: have improved cp Condition: Stable cp Diagnosis - Hypo-osmolality and hyponatremia cp - Headache cp - Diabetes mellitus due to underlying condition with hyperglycemia cp Followup: cp - With: Private Physician - When: 1 - 2 days - Reason: Recheck today's complaints Discharge Instructions: - Discharge Summary Sheet cp - Hyperglycemia cp - Hyponatremia cp - Blood Glucose Monitoring, Adult cp - Diabetes Mellitus and Nutrition, Adult cp Forms: - Medication Reconciliation Form cp - Thank You Letter cp - Antibiotic Education cp - Prescription Opioid Use cp Signatures: Dispatcher [employer] EDMS Ciro Dasilva PA PA cp Estrada Encarnacion RN RN as6 Karon Suarez RN RN aa9 Kings Bah MD MD sp4
--- NOTE | 2022-11-04 01:00 | ER ---
Nurse's Notes [facility] Name: Josh Sanchez Age: 62 yrs Sex: Male : 1960 Arrival Date: 11/03/2022 Time: 21:02 Bed 14 Private MD: Diagnosis: Hypo-osmolality and hyponatremia;Headache;Diabetes mellitus due to underlying condition with hyperglycemia Presentation: 11/03 21:22 Chief complaint: Patient states: "I have a bad headache. 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 Coronavirus screen: At this time, the client does not indicate any symptoms associated with coronavirus-19. Ebola Screen: No symptoms or risks identified at this time. Initial Sepsis Screen: Does the patient meet any 2 criteria? No. Patient's initial sepsis screen is negative. Does the patient have a suspected source of infection? No. Patient's initial sepsis screen is negative. Risk Assessment: Do you want to hurt yourself or someone else? Patient reports no desire to harm self or others. Onset of symptoms was October 27, 2022. 21:22 Method Of Arrival: Ambulatory as6 21:22 Acuity: KAYDEN 3 as6 Triage Assessment: 11/04 00:00 Pain: Pain began years ago. aa9 01:07 General: Appears in no apparent distress. comfortable, obese, unkempt, Behavior is aa9 calm, cooperative. Pain: Pain Also complains of no other associated symptoms. Historical: - Allergies: 11/03 21:24 No Known Allergies; as6 - PMHx: 21:24 Diabetes - NIDDM; as6 21:24 Hypertensive disorder; as6 - Immunization history:: Client reports receiving the 2nd dose of the Covid vaccine. - Social history:: Smoking status: Patient/guardian denies using tobacco. Screenin:09 Abuse screen: Denies threats or abuse. Denies injuries from another. Nutritional aa9 screening: No deficits noted. Tuberculosis screening: No symptoms or risk factors identified. 11/04 01:08 [facility] ED Fall Risk Assessment (Adult) History of falling in the last 3 months, aa9 including since admission No falls in past 3 months (0 pts) Confusion or Disorientation No (0 pts) Intoxicated or Sedated No (0 pts) Impaired Gait No (0 pts) Mobility Assist Device Used No (0 pt) Altered Elimination No (0 pt) Score/Fall Risk Level 0 - 2 = Low Risk Oriented to surroundings, Educated pt \\T\\ family on fall prevention, incl call for assistance when getting out of bed. Assessment: 11/03 21:45 General: Appears comfortable, unkempt, Behavior is calm, cooperative. Pain: Complains aa9 of pain in generalized. Neuro: Level of Consciousness is awake, alert, obeys commands, Oriented to person, place, time, situation. Cardiovascular: Patient's skin is warm and dry. Rhythm is sinus tachycardia. Respiratory: Airway is patent Respiratory effort is even, unlabored. Derm: Skin is intact, is healthy with good turgor. 22:43 Reassessment: Patient appears in no apparent distress at this time. Patient and/or aa9 family updated on plan of care and expected duration. Pain level reassessed. Patient is alert, oriented x 3, equal unlabored respirations, skin warm/dry/pink. 11/04 00:53 Reassessment: Patient appears in no apparent distress at this time. Patient and/or aa9 family updated on plan of care and expected duration. Pain level reassessed. Patient is alert, oriented x 3, equal unlabored respirations, skin warm/dry/pink. 01:08 Reassessment: Patient appears in no apparent distress at this time. Patient and/or aa9 family updated on plan of care and expected duration. Pain level reassessed. Patient is alert, oriented x 3, equal unlabored respirations, skin warm/dry/pink. Patient states feeling better. Patient states symptoms have improved. Vital Signs: 11/03 21:22 BP 148 / 80; Pulse 117; Resp 18 S; Temp 99.3(TE); Pulse Ox 95% on R/A; Weight 90.72 kg as6 (R); Height 5 ft. 3 in. (R); 22:07 BP 129 / 77; Pulse 117; Resp 20 S; Pulse Ox 97% on R/A; aa9 22:45 BP 134 / 82; Pulse 112; Resp 18; Pulse Ox 97% on R/A; aa9 23:15 BP 127 / 71; Pulse 102; Resp 18 S; Pulse Ox 97% ; aa9 11/04 00:15 BP 121 / 74; Pulse 98; Resp 18; Pulse Ox 95% on R/A; aa9 00:30 BP 128 / 71; Pulse 99; Resp 19 S; Pulse Ox 96% on R/A; aa9 01:08 BP 128 / 75; Pulse 94; Resp 16; Temp 98.6; Pulse Ox 97% on R/A; aa9 11/03 21:22 Body Mass Index 35.43 (90.72 kg, 160.02 cm) as6 ED Course: 11/03 21:05 Patient arrived in ED. ja2 21:15 Ciro Dasilva PA is PHCP. cp 21:16 Kings Bah MD is Attending Physician. cp 21:24 Triage completed. as6 21:24 Arm band placed on. as6 21:29 Karon Suarez, ERMIAS is Primary Nurse. aa9 21:30 Inserted saline lock: 20 gauge in right antecubital area, using aseptic technique. aa9 Blood collected. 21:47 Basic Metabolic Panel Sent. aa9 21:47 CBC with Diff Sent. aa9 21:47 LFT's Sent. aa9 21:47 Magnesium Sent. aa9 21:47 PT-INR Sent. aa9 21:47 Troponin HS Sent. aa9 22:03 Influenza Screen (a \\T\\ B) Sent. aa9 22:03 SARS RAPID Sent. aa9 22:32 XRAY Chest (1 view) In Process Unspecified. EDMS 23:00 IV is swollen, with fluids not infusing freely, without good blood return, R AC D/C. aa9 23:01 Inserted saline lock: 22 gauge in left forearm, using aseptic technique. aa9 23:18 CT Head Brain wo Cont In Process Unspecified. EDMS 11/04 00:00 Patient has correct armband on for positive identification. Bed in low position. Call aa9 light in reach. Side rails up X2. 00:00 Client placed on continuous cardiac and pulse oximetry monitoring. NIBP monitoring aa9 applied. 00:50 Diet: Patient given snack. Patient given water. Tolerated well. aa9 01:07 No provider procedures requiring assistance completed. IV discontinued, intact, aa9 bleeding controlled, No redness/swelling at site. Pressure dressing applied. Administered Medications: 11/03 22:43 Drug: NS 0.9% IV 1000 ml Route: IV; Rate: 500 ml/hr; Site: right antecubital; aa9 11/04 01:09 Follow up: Response: No adverse reaction; IV Status: Completed infusion; IV Intake: aa9 1000ml 11/03 22:43 Drug: Acetaminophen PO 1000 mg Route: PO; aa9 11/04 01:09 Follow up: Response: No adverse reaction aa9 Medication: 01:08 VIS not applicable for this client. aa9 Intake: 01:09 IV: 1000ml; Total: 1000ml. aa9 Outcome: 01:00 Discharge ordered by . darlene 01:07 Discharged to home ambulatory, with friend. aa9 01:07 Condition: stable 01:07 Discharge instructions given to patient, Instructed on discharge instructions, follow up and referral plans. Demonstrated understanding of instructions, follow-up care. 01:08 Patient left the ED. aa9 Signatures: Dispatcher [employer] EDMS Ciro Dasilva PA PA cp Alexander, Jessica ja2 Slawson, Ashby, RN RN as6 Karon Suarez RN RN aa9 Corrections: (The following items were deleted from the chart) 11/03 23:01 23:00 IV is swollen, with fluids not infusing freely, without good blood return, L AC aa9 D/C. aa9
[2022-11-04 01:50] VITALS: BP 128/75; TEMP 98.6; O2SAT 97
--- NOTE | 2022-11-05 11:16 | RAD REPORT ---
EXAM DESCRIPTION: CT - Head Brain Wo Cont - 11/04/2022 2:26 am CLINICAL HISTORY: Headache COMPARISON: None. TECHNIQUE: Head/brain axial images acquired without contrast. Coronal and sagittal reformats created . Exam performed according to departmental dose-optimization program which includes automated exposur e control, adjustment of mA and/or kV according to patient size, and/or use of iterative reconstructi on technique. FINDINGS: No midline shift, mass effect, intracranial hemorrhage, or hydrocephalus. Small hypodense area at left parietotemporal lobe periphery (axial series 201, image 16; sagittal ser ies 204, image 63; coronal series 203, image 51). This area measures about 1.2 x 0.8 x 0.9 cm. Mild, bilateral, globus pallidus calcifications. Paranasal sinuses clear. Mastoid air cells clear. No skull fracture or significant skull lesion. Calcified atherosclerotic intracranial internal carotid and vertebral arteries. Right lens postsurgical change. IMPRESSION: Small, nonspecific, hypodense abnormality at left parietotemporal lobe periphery (cortex /subcortical white matter) is of indeterminate age. Causes include gliosis from chronic insult (old ischemic infarct or old hemorrhage), congenital or de velopmental abnormality, demyelination, old inflammation, or less likely neoplasm. Unless there is a prior CT head for comparison, then a nonemergent outpatient follow up MR head/brain without and with contrast may be helpful. Electronically signed by: John Allen MD 11/04/2022 12:38 AM CDT Due to temporary technical issues with the PACS/Fluency reporting system, reports are being signed by the in house radiologist without review as a courtesy to ensure prompt reporting. The interpreting r adiologist is fully responsible for the content of the report.
--- NOTE | 2022-11-05 17:52 | EKG ---
Test Date: 2022-11-03 Test Time: 21:57:30 Outgoing Inspector: BLANCHE MEASUREMENT RESULTS: Intervals: Rate: 114 PA: 170 QRSD: 90 QT: 314 QTc: 432 [place]: P: 60 PA: 170 QRS: 48 T: 56 INTERPRETIVE STATEMENTS: Sinus tachycardia Otherwise normal ECG Compared to ECG 03/03/2019 22:21:35 No significant changes Electronically Signed On 11-05-22 17:50:00 CDT by Toby Walton
== END 2022-11-04 01:08 | disposition home or self-care (01) ==
LOC: ER 21:02
DX: E87.1 Hypo-osmolality and hyponatremia (principal); E11.65 Type 2 diabetes mellitus with hyperglycemia; I10 Essential (primary) hypertension; Z20.822 Contact with and (suspected) exposure to COVID-19
CPT/HCPCS: 96361; 93005; 85025; 80048; 36415; 83735; 85610; 80076; 83605; 84484; 87804 ×2; 70450; 71045; 96360; 99284; 87811; J7030

== ENCOUNTER 2023-08-31 22:56 | Inpatient (IN) | payer MEDICARE, OTHER ==
--- OUTSIDE RECORDS SUMMARY | 2023-08-31 22:59 | XMS REPORT | Continuity of Care Document ---
Author Name Unknown Address [address] [facility] [address] [id number] [facility] thconnect Address [address] [facility] [place] [place] [address] Care Team Providers Care Out And Out Cigar Maker Hand Name Role Phone RIAZ ABARCA Attending Clinician UnavailRiaz Parisi MD Attending Clinician [phone] [employer] CRNA Attending Clinician [phone] Angel Kumar MD Attending Clinician [phone] Only, Adc Test Attending Clinician Unavailable Doctor Unassigned, [place] Attending Clinician U Tammy Sifuentes MD Attending Clinician [phone] Pob, Adc Lab Main Attending Clinician UnavailRIAZ Lloyd Admitting Clinician Riaz Au MD Admitting Clinician [phone] Payers Payer Name Policy Type Policy Number Effective Date Expirati on Date Source [employer]VANTAGE [id number] 2019 00:00:00 Problems Condition Name Condition Details Condition Category Status Onset Date Resolution Date Last Treatment Date Treating Clinician Comments Source Obesity (BMI 30-39.9) Obesity (BMI 30-39.9) Disease Active 12-15 00:00: 00 [facility] Allergies, Adverse Reactions, Alerts Allergy Name Allergy Type Status Severity Reaction(s) Onset Date Inactive Date Treating Clinician Comments Source NO KNOWN ALLERGIE S Drug Class Active [facility] Social History Social Habit Start Date Stop Date Quantity Comments Source Sex Assigned At [facility] Exposure to SARS-CoV-2 (event) Not sure [facility] Tobacco Comment 2019-12-15 00:00:00 2019-12-15 00:00:00 quit 10 years ago [facility] Smoking Status Start Date Stop Date Source Unknown if ever smoked [facility] Former smoker 2019-12-15 00:00:00 2019-12-15 00:00:00 [facility] Medications Ordered Medication Name Filled Medication Name Start Date Stop Date Current Medication? Ordering Clinician Indication Dosage Frequency Signature (SIG) Comments Components Source metformin HCl (METFORMIN ORAL) 12-15 17:03: 04 Yes Take by mouth. [facility] GLIMEPIRIDE ORAL 12-15 17:03: 04 Yes Take by mouth. [facility] ibuprofen 400 mg tablet 12-15 17:03: 04 Yes 400mg Take 400 mg by mouth every 6 (six) hours as needed. [facility] metformin HCl (METFORMIN ORAL) 12-15 15:09: 54 Yes Take by mouth. [facility] GLIMEPIRIDE ORAL 12-15 15:09: 54 Yes Take by mouth. [facility] ibuprofen 400 mg tablet 12-15 15:09: 54 Yes 400mg Take 400 mg by mouth every 6 (six) hours as needed. [facility] eye block syringe 11 mL 12-15 14:48: 00 Yes PRN, Starting Sat12/16/19 at 0948, Until Discontinu ed, Intra-op [facility] eye block syringe 11 mL 12-15 14:42: 00 Yes PRN, Starting Sat12/16/19 at 0942, Until Discontinu ed, [facility] propofol IV infusion 12-15 14:30: 00 12-15 15:03 :26 No Intravenou s, ONCE INTRA PROCEDURE, Starting Sat12/16/19 at 0930, Until Sat12/16/19 at 1003, Routine, [facility] remifentani l (ULTIVA) injection 12-15 14:24: 00 12-15 15:03 :26 No Intravenou s, ONCE INTRA PROCEDURE, Starting Sat12/16/19 at 0924, Until Sat12/16/19 at 1003, Routine, [facility] midazolam (VERSED) injection 12-15 14:23: 00 12-15 15:03 :26 No IV Push, ONCE INTRA PROCEDURE, Starting Sat12/16/19 at 0923, Until Sat12/16/19 at 1003, Routine, [facility]op [facility] lactated ringers IV infusion 12-15 14:22: 00 12-15 15:03 :26 No IV Infusion, CONTINUOUS PRN, Starting Sat12/16/19 at 0922, Until Sat12/16/19 at 1003, Routine, Intra-op [facility] mydriatic #5 ophthalmic solution 0.5 mL syringe 12-15 13:00: 00 12-15 13:00 :00 No .5mL 0.5 mL, Right Eye, ONCE, 1 dose, Sat12/16/19 at 0800, Routine, [facility] 1,000 mL 12-15 13:00: 00 12-15 12:58 :00 No 1000mL at 20 mL/hr, 1,000 mL, IV Infusion, ONCE, 1 dose, Sat12/16/19 at 0800, Routine, DSU Pre-op [facility] water for irrigation irrigation solution 12-15 12:56: 00 Yes PRN, Starting Sat12/16/19 at 0756, Until Discontinu ed, Routine, Intra-op [facility] sodium chloride (NS) injection 12-15 12:55: 00 Yes PRN, Starting Sat12/16/19 at 0755, Until Discontinu ed, Routine, Intra-op [facility] neomycin-po lymyxin-dex amethasone (MAXITROL) 3.5 mg/g-10,000 unit/g-0.1 % ophthalmic ointment 12-15 12:55: 00 Yes PRN, Starting Sat12/16/19 at 0755, Until Discontinu ed, Routine, Intra-op [facility] Hyaluronida se, Human Recomb. (HYLENEX) injection 12-15 12:55: 00 Yes PRN, Starting Sat12/16/19 at 0755, Until Discontinu ed, Routine, Intra-op [facility] gentamicin injection 12-15 12:54: 00 Yes PRN, Starting Sat12/16/19 at 0754, Until Discontinu ed, LJ, Intra-op [facility] eye block syringe 11 mL 12-15 12:54: 00 Yes PRN, Starting Sat12/16/19 at 0754, Until Discontinu ed, Intra-op [facility] EPINEPHrine 1:1,000 (1 mg/mL) (ADRENALIN) injection 12-15 12:54: 00 Yes PRN, Starting Sat12/16/19 at 0754, Until Discontinu ed, Routine, Intra-op [facility] DUOVISC (DUOVISC VISCO ELASTIC) 3 %-4 %(0.5 mL) 1 % (0.55 mL) intraocular injection 12-15 12:54: 00 Yes PRN, Starting Sat12/16/19 at 0754, Until Discontinu ed, Routine, Intra-op [facility] dexamethaso ne (DECADRON PHOSPHATE) injection 12-15 12:54: 00 Yes PRN, Starting Sat12/16/19 at 0754, Until Discontinu ed, Routine, Intra-op [facility] ceFAZolin (ANCEF) injection 12-15 12:53: 00 Yes PRN, Starting Sat12/16/19 at 0753, Until Discontinu ed, LJ, Intra-op [facility] carbachoL (MIOSTAT) 0.01 % intraocular injection 12-15 12:53: 00 Yes PRN, Starting Sat12/16/19 at 0753, Until Discontinu ed, Routine, Intra-op [facility] balanced salt irrig soln comb1 (BSS PLUS) ophthalmic solution 500 mL bag 12-15 12:53: 00 Yes PRN, Starting Sat12/16/19 at 0753, Until Discontinu ed, Routine, Intra-op [facility] metformin HCl (METFORMIN ORAL) 12-14 16:00: 04 Yes Take by mouth. [facility] GLIMEPIRIDE ORAL 12-14 16:00: 04 Yes [facility] mouth. [facility] ib[facility] 400 mg tablet 12-14 16:00: 04 Yes 400mg Take 400 mg by mouth every 6 (six) hours as needed. [facility] No known medications No Un [facility]arshad [facility] No known medications No [facility] No known medications No [facility] No known medications No [facility] No known medications No [facility] No known medications No Un farsh[facility] Vital Signs Vital Name Observation Time Observation Value Comments S ource Systolic blood pressure 2019-12-16 15:35:00 170 mm[Hg] [facility] Diastolic blood pressure 2019-12-16 15:35:00 80 mm[Hg] [facility] Heart rate 2019-12-16 15:35:00 68 /min [facility] Respiratory rate 2019-12-16 15:35:00 18 /min [facility] Oxygen saturation in Arterial blood by Pulse oximetry 2019-12-16 15:15:00 99 /min [facility] Body temperature 2019-12-16 15:10:00 36.67 Vero [facility] Body weight 2019-12-15 15:00:00 104.327 kg [facility] BMI 2019-12-15 15:00:00 39.46 kg/m2 [facility] Body height 2019-12-04 16:11:00 162.6 cm [facility] Respiratory rate 2019-12-16 15:03:00 9 /min [facility] Procedures Procedure Date / Time Performed Performing Clinicia n Source POCT GLUCOSE(AGE >30DAYS) 2019-12-16 12:57:00 [employer] [facility] ASSIGNMENT OF BENEFITS 2019-12-15 16:20:07 Gudelia brunner Unassigned, [place] [facility] CONSENT/REFUSAL FOR DIAGNOSIS AND TREATMENT 2019-12-07 20:19:50 Doctor Unassigned, [place] [facility] ASSIGNMENT OF BENEFITS 2019-12-07 20:19:34 Gudelia brunner Unassigned, [place] [facility] NOTICE OF PRIVACY PRACTICES 2019-12-07 20:19:15 Doctor Unassigned, [place] [facility] CONSENT/REFUSAL FOR DIAGNOSIS AND TREATMENT 2019-12-07 20:19:04 Doctor Unassigned, [place] [facility] ASSIGNMENT OF BENEFITS 2019-12-07 20:18:48 Docto r Unassigned, [place] [facility] PHYSICIAN ORDERS 2019-12-07 05:01:00 Doctor Unas signed, [place] [facility] Encounters Start Date/Time End Date/Time Encounter Type Admission Type Attending [facility] Care Department Encounter ID Source 2021-03-17 09:17:38 Outpatient R RIAZ ABARCA [facility] [id number] [facility] 2019-12-16 07:38:00 2019-12-16 11:00:00 Hospital Encounter Riaz Abarca [facility] [id number] [facility] 2019-12-16 09:22:00 2019-12-16 10:03:[address] [facility] [id number] [facility] 2019-12-15 11:45:00 2019-12-15 11:45:00 Outpatient R [facility] [id number] [facility] 2019-12-15 11:23:15 2019-12-15 11:36:05 Laboratory Only Only, Adc Test Riaz Abarca [facility] [id number] [facility] 2019-12-15 00:00:00 2019-12-15 00:00:00 Orders Only Doctor Unassigned, [place] [facility] [id number] [facility] 2019-12-09 00:00:00 2019-12-09 00:00:00 Telephone Tammy Molina [facility] [id number] [facility] 2019-12-07 15:13:48 2019-12-07 15:42:09 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
[2023-09-01] MEDS ORDERED: ONDANSETRON 4 MG/2 ML VIAL ONE (00:38)
[2023-09-01] MEDS ORDERED: ACETAMINOPHEN 500 MG TAB ONE (00:38)
[2023-09-01] MEDS ORDERED: NA CHLORIDE 0.9% 2,000 ML ONE (00:38)
[2023-09-01 00:42] LABS: Absolute Lymphocytes (CBC) 1.7 K/uL (0.7-4.9); Absolute Monocytes 1.4 K/uL (0.1-1.3); Absolute Neutrophil 10.5 K/uL (1.8-8.0); Basophils % 0.2 % (0-1.3); Eosinophils % 0.1 % (0-4.4); Hematocrit 41.1 % (39.6-49.0); Hemoglobin 14.3 g/dL (13.6-17.9); Lymphocytes % 12.3 % (15.3-44.8); MCH 31.3 pg (27.0-35.0); MCHC 34.6 g/dL (32.0-36.0); MCV 90.2 fL (80-100); MPV 8.3 fL (7.6-11.3); Monocytes % 10.2 % (3.3-12.3); Neutrophils % 77.2 % (41.7-73.7); Platelets 253 thou/uL (152-406); RBC Red Blood Cell Count 4.56 M/uL (4.33-5.43)
[2023-09-01 00:51] LABS: Albumin 3.4 g/dL (3.4-5.0); Albumin/Globulin Ratio 0.8 (1.1-1.8); Anion Gap 13.1 mEq/L (5.0-15.0); Bilirubin Total 0.6 mg/dL (0.2-1.0); Globulin 4.4 g/dL (2.3-3.5); Potassium 4.1 mEq/L (3.5-5.1); Protein, Total 7.8 g/dL (6.4-8.2); SARS-CoV-2 Antigen CONTROL BLUE LINE VIS/BG OK; SARS-CoV-2 Antigen Rapid Res Negative (Negative)
[2023-09-01 00:58] LABS: Specific Gravity 1.025 (1.005-1.030); Urine Bacteria <20 /HPF (<20); Urine Bilirubin NEGATIVE (Negative); Urine Blood Trace (Negative); Urine Clarity Extremely Turbid (Clear); Urine Color Yellow (Yellow); Urine Culture Reflex Order REFLEXED; Urine Glucose TRACE (Negative); Urine Ketones NEGATIVE (Negative); Urine Microscopic Reflex YN ORDER UMIC; Urine Mucus Slight /HPF (None Seen); Urine Nitrite 1+ (Negative); Urine Protein 1+ (Negative); Urine Urobilinogen Normal (Normal); Urine WBC >50 /HPF (<5); Urine pH 5.5 (5.0-7.0)
--- NOTE | 2023-09-01 01:28 | EDPHYS ---
Physician Documentation [facility] Name: Josh Sanchez Age: 63 yrs Sex: Male : 1960 Arrival Date: 08/31/2023 Time: 22:56 Bed 14 Private MD: ED Physician Dagoberto Melissa HPI: 08/30 23:34 This 63 yrs old Male presents to ER via Ambulatory with complaints of n/v, not ec2 feeling well. 23:34 Patient arrives today due to concern for nausea and vomiting. Patient been feeling ec2 unwell for the past 5 days. Patient reports he has been unable to keep p.o. down, reports associated nausea and vomiting. Reports some congestion as well. Patient reports no difficulty breathing, no abdominal pain, no urinary complaints. Not taking medication for symptoms.. Historical: - Allergies: 23:18 No Known Allergies; cm10 - PMHx: 23:18 Diabetes - NIDDM; Hypertensive disorder; Cerebrovascular accident; cm10 - Immunization history:: Adult Immunizations up to date. - Infectious Disease History:: Denies. - Social history:: Smoking status: Patient/guardian denies using tobacco. ROS: 23:34 Constitutional: as per hpi ec2 Exam: 23:34 Constitutional: GEN: NAD Head: atraumatic Eyes: EOMI Ears: External ears are ec2 normal. CV: Tachycardia LUNGS: no respiratory distress ABD: non-distended SKIN: no evidence of rashes MSK: no evidence of trauma NEURO: moves all extremities equally Vital Signs: 23:16 Pulse 122; Resp 18; Temp 99.4; Pulse Ox 95% ; Weight 99.79 kg; Pain 10/10; pf1 23:20 BP 110 / 87; cm10 14 00:25 BP 91 / 56; Pulse 104; Resp 16; Pulse Ox 96% on R/A; me1 01:13 Pulse 100; ec2 01:25 BP 96 / 69; Pulse 96; ec2 02:33 Temp 98.2(O); cm10 02:33 BP 100 / 71; Pulse 88; Resp 18; Pulse Ox 96% ; cm10 02:34 BP 100 / 71; Pulse 86; ec2 08/30 23:16 Pain Scale: Adult pf1 MDM: 08/30 23:30 Patient medically screened. ec2 23:34 Data reviewed: vital signs. ED course: Patient arrives today for evaluation of nausea ec2 and vomiting. Examination remarkable for tachycardia, otherwise no acute distress. Will obtain a work, urine studies, chest x-ray and viral swabs. Will give the patient crystalloid and Zofran as well.. 08/31 01:12 ED course: CBC shows leukocytosis. Metabolic profile shows renal dysfunction with a ec2 creatinine 1.36 and GFR 58. Urine is infectious appearing. Patient does meet SIRS criteria, will correlate start the patient on antibiotics and obtain a septic workup. . 01:13 ED course: On reassessment patient with improving tachycardia.. ec2 01:27 ED course: Patient is consistent with UTI sepsis, patient with improving endorgan ec2 function with improving tachycardia. On my sepsis reassessment patient is well-appearing in no acute distress. Patient received 2 of the 3 L of crystalloid to complete 30 cc/kg fluid bolus.. 02:32 ED course: EKG independently reviewed and interpreted by me, shows normal sinus rhythm, ec2 rate of 91, no acute ST segment elevations, nonconcerning intervals. . 08/30 23:33 Order name: CBC with Diff; Complete Time: 01:12 ec2 08/30 23:33 Order name: CMP; Complete Time: 01:12 ec2 08/30 23:33 Order name: Lipase; Complete Time: 01:12 ec2 08/30 23:33 Order name: Urinalysis w/ reflexes; Complete Time: 01:12 ec2 08/30 23:33 Order name: Influenza Screen (a \T\ B); Complete Time: 01:12 ec2 08/30 23:33 Order name: SARS RAPID; Complete Time: 01:12 ec2 08/31 01:03 Order name: Urine Culture EDMS 08/31 01:13 Order name: Blood Culture Adult (2) ec2 08/31 01:13 Order name: Lactate w/ 2H reflex if indic.; Complete Time: 02:33 ec2 08/31 01:13 Order name: Protime (+inr); Complete Time: 05:55 ec2 08/31 01:13 Order name: Ptt, Activated; Complete Time: 05:55 ec2 08/31 02:38 Order name: CBC with Automated Diff EDMS 08/31 02:38 Order name: CBC with Automated Diff EDMS 08/31 02:38 Order name: Comprehensive Metabolic Panel EDMS 08/31 02:38 Order name: Comprehensive Metabolic Panel EDMS 08/31 02:38 Order name: Lipid Profile EDMS 08/31 02:38 Order name: Lipid Profile EDMS 08/31 07:47 Order name: Glucose, Ancillary Testing EDMS 08/30 23:33 Order name: CXR XRAY ec2 08/31 02:38 Order name: Head Brain Wo Cont EDMS 08/31 02:38 Order name: Head C Spine Cap Wo Con EDMS 08/30 23:33 Order name: IV Saline Lock; Complete Time: 00:47 ec2 08/30 23:33 Order name: Labs collected and sent; Complete Time: 00:47 ec2 08/31 01:13 Order name: Accucheck; Complete Time: 02:43 ec2 08/31 01:13 Order name: Cardiac monitoring; Complete Time: 01:59 ec2 08/31 01:13 Order name: EKG - Nurse/Tech; Complete Time: 02:35 ec2 08/31 01:13 Order name: IV Saline Lock - Large Bore; Complete Time: 01:59 ec2 08/31 01:13 Order name: O2 Per Protocol; Complete Time: 01:59 ec2 08/31 01:13 Order name: O2 Sat Monitoring; Complete Time: 01:59 ec2 08/31 01:13 Order name: Vital Signs; Complete Time: 01:59 ec2 Administered Medications: 00:46 Drug: NS 0.9% IV 1000 ml IV at 1 bolus Per protocol; 1000 mL bolus Route: IV; Rate: 1 cm10 bolus; Site: left antecubital; 02:11 Follow up: Response: No adverse reaction; IV Status: Completed infusion; IV Intake: cm10 1000ml 00:46 Drug: Ondansetron IVP 4 mg IVP once; over 2 minutes Route: IVP; Site: left antecubital; cm10 02:12 Follow up: Response: No adverse reaction cm10 00:46 Drug: Acetaminophen PO 1000 mg PO once Route: PO; cm10 02:11 Follow up: Response: No adverse reaction cm10 00:46 Drug: NS 0.9% IV 1000 ml IV at 1 bolus Per protocol; 1000 mL bolus Route: IV; Rate: 1 cm10 bolus; Site: left antecubital; 02:11 Follow up: Response: No adverse reaction; IV Status: Completed infusion; IV Intake: cm10 1000ml 02:35 Drug: Rocephin IV 1 grams IV at calculated rate once; Given slow IV push per pharmacy cm10 instructions Route: IV; Rate: calculated rate; Site: left antecubital; 02:35 Drug: NS 0.9% IV 1000 ml IV at 1 bolus Per protocol; 1000 mL bolus Route: IV; Rate: 1 cm10 bolus; Site: left antecubital; Disposition Summary: 09/01/23 01:27 Hospitalization Ordered Notes: Hospitalization Status: Inpatient Admission ec2 Provider: Tan Rey ec2 Condition: Stable ec2 Problem: new ec2 Symptoms: have improved ec2 Bed/Room Type: Standard ec2 Location: Telemetry/MedSurg (Inpatient)(09/01/23 09:53) eb Room Assignment: 414(09/01/23 09:53) eb Diagnosis - UTI/ Urinary tract infection, site not specified ec2 - Sepsis, unspecified organism ec2 Forms: - Medication Reconciliation Form ec2 - SBAR form ec2 - Leadership Thank You Letter ec2 Critical care time excluding procedures: 01:27 Critical care time: Bedside Care: 30 minutes, Consultation: 5 minutes. Total time: 35 ec2 minutes Signatures: Dispatcher [employer] EDBoaz Chandra, JR-C CABLE TELEVISION PROGRAM DIRECTOR-Cla1 Tammy Johnson Clarissa, RN RN cm10 Naomy Mejía mc5 Dagoberto Melissa MD MD ec2 Corrections: (The following items were deleted from the chart) 08/30 23:34 23:34 CBC+H.LAB.BRZ ordered. EDMS EDMS 23:34 23:34 COMPREHENSIVE METABOLIC PANEL+C.LAB.BRZ ordered. EDMS EDMS 23:34 23:34 LIPASE+C.LAB.BRZ ordered. EDMS EDMS 23:34 23:34 Urinalysis+U.LAB.BRZ ordered. EDMS EDMS 23:34 23:34 Influenza Screen (A \T\ B)+BA.LAB.BRZ ordered. EDMS EDMS 23:34 23:34 SARS-COV-2 Antigen Rapid+I.LAB.BRZ ordered. EDMS EDMS 08/31 02:35 02:34 BP 100 / 71; Pulse 93bpm; ec2 ec2 02:43 01:27 Telemetry/MedSurg (Inpatient) ec2 mc5 02:43 01:27 ec2 mc5 09:53 02:43 [facility] ER HOLD mc5 eb 09:53 02:43 ERHOLD- mc5 eb
--- NOTE | 2023-09-01 01:28 | ER ---
Nurse's Notes [facility] Name: Jsoh Sanchez Age: 63 yrs Sex: Male : 1960 Arrival Date: 08/31/2023 Time: 22:56 Bed 14 Private MD: Diagnosis: UTI/ Urinary tract infection, site not specified;Sepsis, unspecified organism Presentation: 08/30 23:16 Chief complaint: Patient states: GENERALIZED BODY PAIN X3 DAYS, NAUSEA AND VOMITING. PT cm10 HAS NOSE BLEED IN TRIAGE. Coronavirus screen: Client denies travel out of the [place] in the last 14 days. At this time, the client does not indicate any symptoms associated with coronavirus-19. Ebola Screen: Patient denies travel to an Ebola-affected area in the 21 days before illness onset. No symptoms or risks identified at this time. Initial Sepsis Screen: Does the patient meet any 2 criteria? HR > 90 bpm. Does the patient have a suspected source of infection? No. Patient's initial sepsis screen is negative. Risk Assessment: Do you want to hurt yourself or someone else? Patient reports no desire to harm self or others. Onset of symptoms was August 31, 2023. 23:16 Method Of Arrival: Ambulatory cm10 23:16 Acuity: KAYDEN 3 cm10 Historical: - Allergies: 23:18 No Known Allergies; cm10 - PMHx: 23:18 Diabetes - NIDDM; Hypertensive disorder; Cerebrovascular accident; cm10 - Immunization history:: Adult Immunizations up to date. - Infectious Disease History:: Denies. - Social history:: Smoking status: Patient/guardian denies using tobacco. Screenin/14 00:46 [facility] ED Fall Risk Assessment (Adult) History of falling in the last 3 months, me1 including since admission No falls in past 3 months (0 pts) Confusion or Disorientation No (0 pts) Intoxicated or Sedated No (0 pts) Impaired Gait No (0 pts) Mobility Assist Device Used No (0 pt) Altered Elimination No (0 pt) Score/Fall Risk Level 0 - 2 = Low Risk Provided non-skid footwear, Hourly rounding (assess needs \T\ fall precautionary measures) done. Abuse screen: Denies threats or abuse. Nutritional screening: No deficits noted. Tuberculosis screening: No symptoms or risk factors identified. Assessment: 00:40 Reassessment: Assumed care of patient at this time. Pt A\T\Ox,4 respirations even and cm10 unlabored. Pt updated on plan of care, call light in reach. Pt medicated per MAR. General: Appears in no apparent distress. comfortable, Behavior is calm, cooperative. Pain: Complains of pain in Generalized body aches. Neuro: No deficits noted. Level of Consciousness is awake, alert, obeys commands, Oriented to person, place, time, situation. Cardiovascular: No deficits noted. Capillary refill < 3 seconds Patient's skin is warm and dry. Respiratory: No deficits noted. Airway is patent Respiratory effort is even, unlabored, Respiratory pattern is regular, symmetrical. GI: No deficits noted. Reports nausea, vomiting. : No deficits noted. Reports burning with urination. EENT: Reports Nose bleed. Derm: No deficits noted. Skin is intact, Skin is pink, warm \T\ dry. Musculoskeletal: No deficits noted. Range of motion: intact in all extremities. 00:46 General: Appears uncomfortable, well groomed, well developed, well nourished, Behavior me1 is calm, cooperative, appropriate for age, Reports generalized body aches x 3 days, reports n/v and had a nose bleed in triage. Pain: Complains of pain in generalized Pain does not radiate. Pain currently is 10 out of 10 on a pain scale. Quality of pain is described as aching, Pain began 2-3 days ago. Is continuous. Neuro: Level of Consciousness is awake, alert, obeys commands, Oriented to person, place, time, situation, Appropriate for age. Cardiovascular: Capillary refill < 3 seconds Patient's skin is warm and dry. Respiratory: Airway is patent Respiratory effort is even, unlabored, Respiratory pattern is regular, symmetrical. GI: Reports nausea, vomiting. : Reports burning with urination. EENT: No signs and/or symptoms were reported regarding the EENT system. Derm: Skin is intact, is healthy with good turgor, Skin is pink, warm \T\ dry. Musculoskeletal: Reports pain in generalized. 02:34 Reassessment: Patient appears in no apparent distress at this time. Patient and/or cm10 family updated on plan of care and expected duration. Pain level reassessed. Patient is alert, oriented x 3, equal unlabored respirations, skin warm/dry/pink. 07:30 Reassessment: SEE [employer] FOR DOCUMENTATION. db Vital Signs: 08/30 23:16 Pulse 122; Resp 18; Temp 99.4; Pulse Ox 95% ; Weight 99.79 kg; Pain 10/10; pf1 23:20 BP 110 / 87; cm10 08/31 00:25 BP 91 / 56; Pulse 104; Resp 16; Pulse Ox 96% on R/A; me1 01:13 Pulse 100; ec2 01:25 BP 96 / 69; Pulse 96; ec2 02:33 Temp 98.2(O); cm10 02:33 BP 100 / 71; Pulse 88; Resp 18; Pulse Ox 96% ; cm10 02:34 BP 100 / 71; Pulse 86; ec2 08/30 23:16 Pain Scale: Adult pf1 ED Course: 08/30 22:58 Patient arrived in ED. im 23:04 Dagoberto Melissa MD is Attending Physician. ec2 23:18 Triage completed. cm10 23:18 Arm band placed on Patient placed in an exam room, on a stretcher. cm10 23:54 CXR XRAY In Process Unspecified. EDMS 08/31 00:07 Tayler Shabazz, RN is Primary Nurse. me1 00:25 Initial lab(s) drawn, by md, sent to lab. COVID swab sent to lab. Flu and/or RSV swab me1 sent to lab. Inserted saline lock: 20 gauge in left antecubital area, using aseptic technique. 00:46 Patient has correct armband on for positive identification. Bed in low position. Call me1 light in reach. Side rails up X 1. Provided Education on: POC. Verbalized understanding. . 00:46 No provider procedures requiring assistance completed. me1 00:47 Primary Nurse role handed off by Tayler Shabazz, ERMIAS cm10 00:47 Genesis Joseph, ERMIAS is Primary Nurse. cm10 01:27 Tan Rey MD is Hospitalizing Provider. ec2 02:35 Second set of blood cultures drawn by ED staff. Inserted saline lock: 22 gauge in right cm10 hand, using aseptic technique. Blood collected. 06:50 Dagoberto Melissa MD is Attending Physician. ec2 07:30 Client placed on continuous cardiac and pulse oximetry monitoring. NIBP monitoring db applied. soccer ball assembler on. Pulse ox on. NIBP on. Warm blanket given. 07:30 Patient admitted, IV remains in place. db Administered Medications: 00:46 Drug: NS 0.9% IV 1000 ml IV at 1 bolus Per protocol; 1000 mL bolus Route: IV; Rate: 1 cm10 bolus; Site: left antecubital; 02:11 Follow up: Response: No adverse reaction; IV Status: Completed infusion; IV Intake: cm10 1000ml 00:46 Drug: Ondansetron IVP 4 mg IVP once; over 2 minutes Route: IVP; Site: left antecubital; cm10 02:12 Follow up: Response: No adverse reaction cm10 00:46 Drug: Acetaminophen PO 1000 mg PO once Route: PO; cm10 02:11 Follow up: Response: No adverse reaction cm10 00:46 Drug: NS 0.9% IV 1000 ml IV at 1 bolus Per protocol; 1000 mL bolus Route: IV; Rate: 1 cm10 bolus; Site: left antecubital; 02:11 Follow up: Response: No adverse reaction; IV Status: Completed infusion; IV Intake: cm10 1000ml 02:35 Drug: Rocephin IV 1 grams IV at calculated rate once; Given slow IV push per pharmacy cm10 instructions Route: IV; Rate: calculated rate; Site: left antecubital; 02:35 Drug: NS 0.9% IV 1000 ml IV at 1 bolus Per protocol; 1000 mL bolus Route: IV; Rate: 1 cm10 bolus; Site: left antecubital; Medication: 00:46 VIS not applicable for this client. me1 Intake: 02:11 IV: 1000ml; Total: 1000ml. cm10 02:11 IV: 1000ml; Total: 2000ml. cm10 Outcome: 01:27 Decision to Hospitalize by Provider. ec2 07:30 Admitted to ER Hold. Please see [facility] for further documentation. db 07:30 Condition: stable 07:30 Instructed on the need for admit, 10:37 Patient left the ED. db Signatures: Dispatcher [employer] Faiza Sanchez RN RN db Yuridia Valladares RN RN pf1 Cherry Mcarthur Clarissa, RN RN 10 Tayler Shabazz RN RN md1 Dagoberto Melissa MD MD ec2 Corrections: (The following items were deleted from the chart) 00:40 08/30 23:16 BP 163 / 147; Pulse 122bpm; Resp 18bpm; Pulse Ox 95%; Temp 99.4F; 99.79 kg; pf1 Pain 02/26, Adult; cm10
[2023-09-01] MEDS ORDERED: NA CHLORIDE 0.9% 50 ML ONE ×2 (02:03→08:27)
[2023-09-01] MEDS ORDERED: CEFTRIAXONE 1000 MG/VIAL ONE ×2 (02:03→08:26)
[2023-09-01] MEDS ORDERED: NA CHLORIDE 0.9% 1,000 ML ONE (02:03)
[2023-09-01] MEDS ORDERED: ONDANSETRON 4 MG/2 ML VIAL IV PRN (02:29)
[2023-09-01] MEDS: ACETAMIN/CAFFEINE/BUTALB TAB PO ONE (02:33)
[2023-09-01] MEDS ORDERED: MELATONIN 5 MG TABLET PO PRN (02:33)
[2023-09-01] MEDS ORDERED: HYDRALAZINE HCL 20 MG/ML VIAL IV PRN (02:33)
[2023-09-01 02:41] LABS: PT Prothrombin Time 12.3 SECONDS (9.5-12.5); PTT, Activated Partial Thromb 29.5 SECONDS (24.3-36.9); Protime INR 1.12
--- NOTE | 2023-09-01 02:43 | P.HP ---
Certification for Inpatient Patient admitted to: Observation With expected LOS: <2 Midnights Patient will require the following post-hospital care: None Practitioner: I am a practitioner with admitting privileges, knowledge of patient current condition, hospital course, and medical plan of care. Services: Services provided to patient in accordance with Admission requirements found in Title 42 Section 412.3 of the Code of Federal Regulations Patient History Date of Service: 09/01/23 Reason for admission: Nausea and vomiting, headache History of Present Illness: 63-year-old male with past medical history of HTN, DM on oral hypoglycemic, uncertain history of aneurysm in the past who presented to the hospital because of feeling of nausea and vomiting since the last 2 days associated with weakness. Patient states vomiting was nonbilious. He states he has been having generalized weakness and fatigue. He denies any fever or chills. He denies any shortness of breath or chest pain. He denies any cough. He states he has been having headache more around the posterior part of the right scalp, he complained of stiffness of his neck as well as stiffness of his lower extremities. He states he has aneurysm but when asked further he explained that he had a pop in his head 8 years ago making him unconscious and when he woke up 3 hours later he has restaged on the Internet that it could have been due to aneurysm. He admitted that he had an MRI done 1 year ago and was told everything was fine. He continues to have recurrent neck pain as well as some pain in the back of the head. He thinks he has a painful knot on the right side of the scalp. He denies any fall. On arrival in the ED vital signs were stable, afebrile, WBC was mildly elevated at 13.3 with a left shift, BMP was unremarkable except for creatinine of 1.36. Urinalysis shows large leukocyte esterase with both WBC and RBC. He has been admitted for presumed UTI with unexplained headaches Home medications list reviewed: Yes - Past Medical/Surgical History Has patient received pneumonia vaccine in the past: No Diabetic: Yes -: Hypertension -: Diabetes mellitus -: Self-diagnosed aneurysm Past Surgical History: Patient denies surgical history - Family History Family History: Reviewed- Non-Contributory - Social History Smoking Status: Never smoker Place of Residence: Home Review of Systems General: Chills, Weakness, Malaise Gastrointestinal: Nausea, Vomiting Genitourinary: Unremarkable Musculoskeletal: Neck Pain Physical Examination - Physical Exam General: Alert, In no apparent distress, Oriented x3, Cooperative HEENT: Atraumatic, Normocephalic, PERRLA, Other (palpable tenderness over right occipital region , no mass or lump noted ) Neck: Supple, 2+ carotid pulse no bruit, JVD not distended Respiratory: Clear to auscultation bilaterally, Normal air movement Cardiovascular: No edema, Normal pulses, Regular rate/rhythm, Normal S1 S2 Gastrointestinal: Normal bowel sounds, Soft and benign, Non-distended, No tenderness, No masses Musculoskeletal: No clubbing, No swelling Integumentary: No rashes, No breakdown Neurological: Normal gait, Normal speech, Normal strength at 5/5 x4 extr, Sensation intact, Cranial nerves 3-12 intact External genitalia: No edema, No lesions - Studies Laboratory Data (last 24 hrs) 09/01/23 09/01/23 00:22 00:22 WBC 13.60 H Hgb 14.3 Hct 41.1 Plt Count 253 Sodium 131 L Potassium 4.1 BUN 30 H Creatinine 1.36 H Glucose 216 H Total Bilirubin 0.6 AST 13 L ALT 29 Alkaline Phosphatase 118 H Lipase 44 Microbiology Data (last 24 hrs): 09/01/23 00:22 Nasopharnyx Influenza Type A Antigen Screen - Final 09/01/23 00:22 Nasopharnyx Influenza Type B Antigen Screen - Final Assessment and Plan - Problems (Diagnosis) (1) UTI (urinary tract infection) Current Visit: Yes Status: Acute (2) Hypertension Current Visit: Yes Status: Acute (3) Diabetes mellitus Current Visit: Yes Status: Acute (4) Headache Current Visit: Yes Status: Acute - Plan Impression UTI Hypertension Diabetes mellitus Tension headache Cervical neck pain Elevated creatinine Plan Will admit to observation Obtain head CT given this send diagnosis history of aneurysm Also obtain CT of the neck to rule out cervical arthritis since recurrent occipital headaches appear to be radiation from the cervical area Start Rocephin for UTI Follow urine culture Insulin sliding scale with Accu-Chek Resume home medication of glimepiride and metformin as reported Patient unsure if he is on lisinopril, will start empirically on 20 mg daily now IV hydralazine as needed Gentle IV fluid with normal saline Elevated creatinine may be due to volume depletion with vomiting Follow-up with IV fluid Renal consult. Subcutaneous Lovenox for DVT prophylaxis Possible DC in 1 to 2 days Full code Discharge Plan: Home Plan to discharge in: 24 Hours - Advance Directives Does patient have a Living Will: No Does patient have a Durable POA for Healthcare: No - Code Status/Comfort Care Code Status Assessed: Yes
[2023-09-01] MEDS: NA CHLORIDE 0.9% 1,000 ML IV SCH (03:00)
[2023-09-01 03:51] VITALS: BMI 36.1
[2023-09-01] MEDS ORDERED: ACETAMIN/CAFFEINE/BUTALB TAB PO ONE (05:30)
[2023-09-01] MEDS: MORPHINE 2 MG/ML SYR IV PRN (05:51)
[2023-09-01] MEDS: INSULIN REGULAR (HUMAN) 100 UNIT/ML SQ SCH (07:30)
--- NOTE | 2023-09-01 07:59 | RAD REPORT ---
EXAM DESCRIPTION: CT - Head C Spine Cap Wo Con - 09/01/2023 7:05 am CLINICAL HISTORY: Recurrent headache COMPARISON: Head Brain Wo Cont dated 11/03/2022 TECHNIQUE: Head and cervical spine CT images were obtained without IV contrast. Chest, abdomen, and pelvis CT images were obtained also without IV contrast. Multiplanar reformats were generated and rev iewed. All CT scans are performed using dose optimization technique as appropriate and may include automated exposure control or mA/KV adjustment according to patient size. FINDINGS: CT HEAD: No intracranial hemorrhage, mass effect, or edema. Stable region of cortical/subcortical encephalomal acia along the left posterior temporal lobe. No evidence of acute territorial infarct. No midline jessica ft or abnormal fluid collection. The ventricles are normal in caliber and configuration for age. Basa l cisterns are patent. Mastoid aircells and paranasal sinuses are clear. No acute skull fracture. CT CERVICAL SPINE: No acute cervical spine fracture or subluxation. Vertebral body heights are well maintained. Scattere d up to moderate degenerative changes with moderate left neural foraminal narrowing at C3-4. Right C5 articular pillar lucent lesion, could relate to a degenerative subchondral cyst. No hyperattenuating canal hematoma. Prevertebral and paraspinous soft tissues are unremarkable. Dental/periodontal disea se, with periapical collections, largest along the left canine root remnant. CT CHEST: No pneumothorax, pulmonary contusion or pleural fluid collection. No mediastinal hematoma and the aor ta and pulmonary arteries are unremarkable. No chest will mass or abnormal axillary finding. No displ aced rib fracture or other significant bony finding. CT ABDOMEN/ PELVIS: No evidence of traumatic injury to solid abdominal viscera. Gallbladder and biliary tree are unremark able. No bowel injury or significant finding. Left inguinal hernia containing fat. Mild colonic diver ticulosis. No free air, free fluid or abnormal fat stranding. No urinary bladder abnormality. No significant bony finding. IMPRESSION: No acute traumatic findings. Incidental findings as above.
[2023-09-01] MEDS: METFORMIN HCL 500 MG TAB PO SCH (08:00)
[2023-09-01] MEDS: glyBURIDE 2.5 MG TAB PO SCH (08:00)
[2023-09-01] MEDS ORDERED: METFORMIN HCL 500 MG TAB ONE (08:26)
[2023-09-01] MEDS ORDERED: FAMOTIDINE 20 MG TAB ONE (08:26)
[2023-09-01] MEDS ORDERED: lisinopriL 20 MG TAB ONE (08:27)
[2023-09-01] MEDS ORDERED: ENOXAPARIN 40 MG/0.4 ML SQ ONE (08:27)
[2023-09-01] MEDS ORDERED: ASPIRIN EC 81 MG TAB PO ONE (08:27)
[2023-09-01] MEDS: ENOXAPARIN 40 MG/0.4 ML SQ SCH (09:00)
[2023-09-01] MEDS: CEFTRIAXONE 1,000 MG in NA CHLORIDE 0.9% 50 ML IVPB SCH (09:00)
[2023-09-01] MEDS: lisinopriL 20 MG TAB PO SCH (09:00)
[2023-09-01] MEDS: FAMOTIDINE 20 MG TAB PO SCH (09:00)
[2023-09-01] MEDS: ASPIRIN EC 81 MG TAB PO SCH (09:00)
[2023-09-01 12:51] LABS: Hemoglobin 13.8 g/dL (13.6-17.9); MCHC 33.6 g/dL (32.0-36.0); MCV 92.2 fL (80-100); MPV 8.5 fL (7.6-11.3); Platelets 212 thou/uL (152-406); RBC Red Blood Cell Count 4.45 M/uL (4.33-5.43)
[2023-09-01 13:11] LABS: Albumin/Globulin Ratio 0.7 (1.1-1.8); Anion Gap 9.1 mEq/L (5.0-15.0); Bilirubin Total 0.4 mg/dL (0.2-1.0); Globulin 4.2 g/dL (2.3-3.5); Potassium 4.1 mEq/L (3.5-5.1); Protein, Total 7.2 g/dL (6.4-8.2)
[2023-09-01] MEDS: NA CHLORIDE 0.9% 1,000 ML IV ONE (14:50)
[2023-09-01] MEDS: ACETAMINOPHEN 500 MG TAB PO PRN (17:14)
--- NOTE | 2023-09-01 17:39 | P.PN ---
Date of Service: 09/01/23 Subjective: Having fever/chills, myalgias No other acute events overnight ROS: 10 point ROS as noted above, otherwise negative Physical exam GEN: Alert, oriented, NAD HEENT: Normal conjunctiva, sclera anicteric CV: Regular rate and rhythm, no edema Pulm: Nonlabored respirations on room air ABD: Soft, nontender, nondistended MSK: No joint tenderness Integumentary: No rashes Neuro: Normal speech, normal affect Vitals reviewed Problem list Sepsis secondary to UTI POA Diabetes mellitus type [id number] with hyperglycemia Hypertension Mild hyponatremia Plan Sepsis secondary to UTI POA Blood cultures, urine culture obtained in ED Lactate less than 2 Running fevers today up to 101.4 Continue antibioticsRocephin Reports 1 week of dysuria prior to hospital admission, UA concerning for UTI Mild hyponatremia Continue IV fluids, recheck admission in the morning Diabetes mellitus type [id number] with hyperglycemia ACHS Accu-Chek, sliding scale insulin Continue medications Hypertension Home medications continued VTE: Lovenox Code: Full Dispo: 2 to 3 days Time Spent Managing Pts Care (In Minutes): 35
[2023-09-02] MEDS: HYDROCODONE/APAP 7.5/325 MG TAB PO PRN (05:42)
[2023-09-02 06:35] LABS: Absolute Lymphocytes (CBC) 1.3 K/uL (0.7-4.9); Absolute Neutrophil 5.7 K/uL (1.8-8.0); Basophils % 0.4 % (0-1.3); Eosinophils % 0.2 % (0-4.4); Hematocrit 35.9 % (39.6-49.0); Hemoglobin 12.5 g/dL (13.6-17.9); Lymphocytes % 15.8 % (15.3-44.8); MCH 31.6 pg (27.0-35.0); MCV 90.4 fL (80-100); MPV 8.3 fL (7.6-11.3); Monocytes % 12.6 % (3.3-12.3); Nucleated Red Blood Cells % 0.1 % (0-0); Platelets 218 thou/uL (152-406); RBC Red Blood Cell Count 3.97 M/uL (4.33-5.43); Red Cell Distribution Width 13.7 % (12.1-15.2)
[2023-09-02 06:39] LABS: Albumin 2.6 g/dL (3.4-5.0); Albumin/Globulin Ratio 0.7 (1.1-1.8); Anion Gap 10.5 mEq/L (5.0-15.0); Bilirubin Total 0.4 mg/dL (0.2-1.0); Potassium 3.5 mEq/L (3.5-5.1); Protein, Total 6.6 g/dL (6.4-8.2)
--- NOTE | 2023-09-02 13:36 | P.PN ---
Date of Service: 09/02/23 Subjective: Had fever overnight WBC improved No fevers today ROS: 10 point ROS as noted above, otherwise negative Physical exam GEN: Alert, oriented, NAD HEENT: Normal conjunctiva, sclera anicteric CV: Regular rate and rhythm, no edema Pulm: Nonlabored respirations on room air ABD: Soft, nontender, nondistended MSK: No joint tenderness Integumentary: No rashes Neuro: Normal speech, normal affect Vitals reviewed Problem list Sepsis secondary to UTI POA Diabetes mellitus type [id number] with hyperglycemia Hypertension Mild hyponatremia Plan Sepsis secondary to UTI POA Blood cultures, urine culture obtained in ED Lactate less than 2 Running fevers 08/31 up to 101.4 Continue antibioticsRocephin Await urine/blood cultures Mild hyponatremia Continue IV fluids, improving Diabetes mellitus type [id number] with hyperglycemia ACHS Accu-Chek, sliding scale insulin Continue medications Hypertension Home medications continued VTE: Lovenox Code: Full Dispo: 2 to 3 days Time Spent Managing Pts Care (In Minutes): 35
--- NOTE | 2023-09-02 19:56 | RAD REPORT ---
EXAM DESCRIPTION: RAD - Chest Single View - 08/31/2023 11:52 pm CLINICAL HISTORY: 63 years, Male, COUGH COMPARISON: None FINDINGS: 1 views of the chest was obtained. No prior films are available at this time for compari son. There is normal lung volume. Mediastinum: The cardiomediastinal silhouette appears normal in size and shape. Lungs: No areas of consolidations or masses are identified. Heart: The heart is normal in size. Thoracic aorta: The thoracic aorta demonstrate to be normal. Pulmonary vasculature: The pulmonary vasculature is normal in distribution. Pleura: The costophrenic angles demonstrate to be sharp. Osseous structures: The bony structures demonstrate to be within normal limits. Other: None. IMPRESSION: No acute cardiopulmonary disease. Electronically signed by: Andrew Coker MD 09/01/2023 01:19 AM CDT Due to temporary technical issues with the PACS/Fluency reporting system, reports are being signed by the in house radiologists without review as a courtesy to insure prompt reporting. The interpreting radiologist is fully responsible for the content of the report.
[2023-09-02 21:33] VITALS: O2SAT 99
[2023-09-03 07:03] LABS: Anion Gap 8.8 mEq/L (5.0-15.0); Potassium 3.8 mEq/L (3.5-5.1)
[2023-09-03 07:04] LABS: Hematocrit 36.2 % (39.6-49.0); Hemoglobin 12.3 g/dL (13.6-17.9); MCH 30.8 pg (27.0-35.0); MCHC 34.1 g/dL (32.0-36.0); MCV 90.3 fL (80-100); MPV 8.5 fL (7.6-11.3); Platelets 215 thou/uL (152-406); RBC Red Blood Cell Count 4.01 M/uL (4.33-5.43); Red Cell Distribution Width 13.7 % (12.1-15.2)
[2023-09-03 16:23] VITALS: BP 124/58; TEMP 97
--- NOTE | 2023-09-03 17:13 | P.DS ---
Admission Date: 09/01/23 Discharge Date: 09/03/23 Disposition: ROUTINE DISCHARGE Discharge Condition: GOOD Reason for Admission: Nausea and vomiting, headache Vital Signs/Physical Exam: Temp Pulse Resp BP Pulse Ox 97 F 86 17 124/58 L 98 09/03/23 16:00 09/03/23 16:00 09/03/23 16:00 09/03/23 16:00 09/03/23 16:00 Laboratory Data at Discharge: WBC 7.00 thou/uL (4.3-10.9) 09/03/23 05:44 Hgb 12.3 g/dL (13.6-17.9) L 09/03/23 05:44 Hct 36.2 % (39.6-49.0) L 09/03/23 05:44 Plt Count 215 thou/uL (152-406) 09/03/23 05:44 PT 12.3 SECONDS (9.5-12.5) 09/01/23 02:25 INR 1.12 09/01/23 02:25 APTT 29.5 SECONDS (24.3-36.9) 09/01/23 02:25 Sodium 134 mEq/L (136-145) L 09/03/23 05:44 Potassium 3.8 mEq/L (3.5-5.1) 09/03/23 05:44 BUN 14 mg/dL (7-18) 09/03/23 05:44 Creatinine 0.96 mg/dL (0.70-1.30) 09/03/23 05:44 Glucose 174 mg/dL (74-106) H 09/03/23 05:44 Total Bilirubin 0.4 mg/dL (0.2-1.0) 09/02/23 05:33 AST 17 U/L (15-37) 09/02/23 05:33 ALT 25 U/L (16-61) 09/02/23 05:33 Alkaline Phosphatase 115 U/L (45-117) 09/02/23 05:33 Triglycerides 216 mg/dL (<150) H 09/02/23 05:33 Cholesterol 162 mg/dL (<200) 09/02/23 05:33 HDL Cholesterol 46 mg/dL (40-60) 09/02/23 05:33 Cholesterol/HDL Ratio 3.52 04/15/24 05:33 Lipase 44 U/L (13-75) 09/01/23 00:22 Home Medications: Cefdinir [Cefdinir*] 300 mg PO BID 10 Days #20 cap 09/03/23 Metformin HCl [Glucophage*] 1,000 mg PO BIDWM tab 09/03/23 glyBURIDE [DIABETA or MICRONASE*] 5 mg PO BIDWM tab 09/03/23 lisinopriL [Prinivil*] 40 mg PO DAILY tab 09/03/23 New Medications: Cefdinir [Cefdinir*] 300 mg PO BID 10 Days #20 cap Physician Discharge Instructions: Josh Sanchez presented to the ED with chief complaint of nausea and vomiting for 2 days associated with weakness. Blood culture negative and urine culture showing gram negative rods. Will continue with cefdinir by mouth at discharge. Please follow up with your PCP for continued blood pressure management. 1. Please call and schedule a follow-up appointment with your PCP in 3-5 days - Please follow-up with your PCP for medication refills/adjustments 2. Please call and schedule a follow-up appointment with [text] in 3-5 days 3. Diet: ADA Activity: Ad suleman Followup: Margot LYN,Keegan Parker DO [Primary Care Provider] -
[2023-09-03] MEDS ORDERED: CEFDINIR 300 MG CAP PO SCH (21:00)
== END 2023-09-03 18:24 | disposition home or self-care (01) | DRG 872 ==
LOC: ER 22:56 → ERHOLD 09-01 02:29 → 4TH 09-01 09:55 → OBSVTOIN 09-01 17:33
PROVIDERS: ADMIT Internal Medicine; ATTEND Internal Medicine
DX: A41.9 Sepsis, unspecified organism (principal); N39.0 Urinary tract infection, site not specified; E87.1 Hypo-osmolality and hyponatremia; I10 Essential (primary) hypertension; M54.2 Cervicalgia; E11.65 Type 2 diabetes mellitus with hyperglycemia; G44.209 Tension-type headache, unspecified, not intractable; Z11.52 Encounter for screening for COVID-19; Z79.84 Long term (current) use of oral hypoglycemic drugs; Z86.73 Personal history of transient ischemic attack (TIA), and cerebral infarction without residual deficits; Z79.899 Other long term (current) drug therapy
CPT/HCPCS: 36415; 70450; 71045; 71250; 72125; 80048; 80053; 80061; 81001; 82947; 83605; 83690; 85025; 85027; 85610; 85730; 87040; 87077; 87086; 87088; 87186; 87804; 87811; 93005; 96361; 96374; 96375; 99285; G0378; J0696; J1650; J1815; J2270; J2405; J7030

== ENCOUNTER 2025-01-02 15:58 | Emergency (ER) | payer OTHER ==
--- OUTSIDE RECORDS SUMMARY | 2025-01-02 16:02 | XMS REPORT | Continuity of Care Document ---
Author Name Unknown Address [address] [facility] [address] [place] [address] [facility] [place] Address [address] [facility] [address] [place] [address] Care Team Providers Care Clinical Material Handler Name Role Phone Keegan Frost Primary Care Physician [phone] RIAZ CACERES Attending Clinician UnavailRiaz Parisi MD Attending Clinician [phone] INA LEA Attending Clinician Unavailable INA LEA Attending Clinician Unavailable Ina Lea DO Attending Clinician [phone] Riaz Caceres MD Attending Clinician [phone] [employer]ak Holman CRNA Attending Clinician [phone] Angel Kumar MD Attending Clinician [phone] Only, Adc Test Attending Clinician Unavailable Doctor Unassigned, [place] Attending Clinician Tammy Palacios MD Attending Clinician [phone] Pob, Adc Lab Main Attending Clinician UnavailRIAZ Lloyd Admitting Clinician Riaz Au MD Admitting Clinician [phone] INA LEA Admitting Clinician Riaz Waldron MD Admitting Clinician [phone] Payers Payer Name Policy Type Policy Number Effective Date Expirati on Date Source [facility]/[employer] MEDICARE ADVANTAGE [id number] 2019 00:00:00 Problems Condition Name Condition Details Condition Category Status Onset Date Resolution Date Last Treatment Date Treating Clinician Comments Source Obesity (BMI 30-39.9) Obesity (BMI 30-39.9) Disease Active 12-15 00:00: 00 [facility] Allergies, Adverse Reactions, Alerts Allergy Name Allergy Type Status Severity Reaction(s) Onset Date Inactive Date Treating Clinician Comments Source NO KNOWN ALLERGIE S Drug Class Active [facility] Social History Social Habit Start Date Stop Date Quantity Comments Source History of tobacco use Current smoker [facility] Sexual orientation U [facility] Exposure to SARS-CoV-2 (event) Not sure [facility] History of Social function 2019-12-16 00:00:00 2019-12-16 00:00:00 [facility] Tobacco use and exposure 2019-12-15 00:00:00 2019-12-15 00:00:00 Smokeless tobacco non-user [facility] Tobacco Comment 2019-12-15 00:00:00 2019-12-15 00:00:00 quit 10 years ago [facility] Sex assigned at 1960 00:00:00 1960 00:00:00 [facility] Smoking Status Start Date Stop Date Source Unknown if ever smoked [facility] Ex-smoker 2019-12-15 00:00:00 2019-12-15 00:00:00 [facility] Medications Ordered Medication Name Filled Medication Name Start Date Stop Date Current Medication? Ordering Clinician Indication Dosage Frequency Signature (SIG) Comments Components Source neomycin-po lymyxin-dex amethasone (MAXITROL) 3.5 mg/g-10,000 unit/g-0.1 % ophthalmic ointment 12-02 14:11: 00 12-02 14:32 :01 No PRN, Starting on Sat12/02/24 at 0911, Until Sat12/02/24 at 0932, Routine, Intra-op [facility] dexamethaso ne (DECADRON PHOSPHATE) 4 mg/mL injection 12-02 14:10: 00 12-02 14:32 :01 No PRN, Starting on Sat12/02/24 at 0910, Until Sat12/02/24 at 0932, Routine, Intra-op [facility] ceFAZolin (ANCEF) injection 12-02 14:10: 00 12-02 14:32 :01 No PRN, Starting on Sat12/02/24 at 0910, Until Sat12/02/24 at 0932, Routine, Intra-op [facility] carbachoL (MIOSTAT) 0.01 % intraocular injection 12-02 14:10: 00 12-02 14:32 :01 No PRN, Starting on Sat12/02/24 at 0910, Until Sat12/02/24 at 0932, Routine, Intra-op [facility] chondroitin sulf-sod hyaluronate (DUOVISC VISCO ELASTIC) intraocular injection 12-02 14:01: 00 12-02 14:32 :01 No PRN, Starting on Sat12/02/24 at 0901, Until Sat12/02/24 at 0932, Routine, Intra-op [facility] tetracaine (PONTOCAINE ) 0.5 % ophthalmic drops 12-02 13:55: 00 12-02 14:32 :01 No PRN, Starting on Sat12/02/24 at 0855, Until Sat12/02/24 at 0932, Routine, Intra-op [facility] Hyaluronida se, Human Recomb. (HYLENEX) injection 12-02 13:45: 00 12-02 14:32 :01 No PRN, Starting on Sat12/02/24 at 0845, Until Sat12/02/24 at 0932, Routine, Intra-op [facility] eye block syringe 11 mL 12-02 13:45: 00 12-02 14:32 :01 No PRN, Starting on Sat12/02/24 at 0845, Until Sat12/02/24 at 0932, Intra-op [facility] EPINEPHrine 1:1,000 (1 mg/mL) (ADRENALIN) injection 12-02 13:31: 00 12-02 14:32 :01 No PRN, Starting on Sat12/02/24 at 0831, Until Sat12/02/24 at 0932, Routine, Intra-op [facility] balanced salt irrig soln comb1 (BSS PLUS) ophthalmic solution 12-02 13:31: 00 12-02 14:32 :01 No PRN, Starting on Sat12/02/24 at 0831, Until Sat12/02/24 at 0932, Routine, Intra-op [facility] sodium chloride (NS) injection 12-02 13:30: 00 12-02 14:32 :01 No PRN, Starting on Sat12/02/24 at 0830, Until Sat12/02/24 at 0932, Routine, Intra-op [facility] water for irrigation irrigation solution 12-02 13:30: 00 12-02 14:32 :01 No PRN, Starting on Sat12/02/24 at 0830, Until Sat12/02/24 at 0932, Routine, Intra-op [facility] lactated ringers IV infusion 1,000 mL 12-02 12:45: 00 12-02 12:41 :00 No 1000mL at 42 mL/hr, 1,000 mL, IV Infusion, ONCE, 1 dose, On Sat12/02/24 at 0745, Routine, DSU Pre-op [facility] cyclopent 1%-tropic 1%-phenyl 2.5%-ketor 0.5% (MYDRIATIC #5) ophthalmic solution syringe 0.5 mL 12-02 12:45: 00 12-02 12:41 :00 No .5mL 0.5 mL, Left Eye, ONCE, 1 dose, On Sat12/02/24 at 0745, Routine, DSU Pre-op [facility] metFORMIN 1,000 mg 24 hr tablet 12-02 11:29: 52 Yes 1000mg Take 1 tablet by mouth in the morning. [facility] glimepiride 4 mg tablet 12-02 11:29: 52 Yes 4mg Take 1 tablet by mouth every morning. Unsure of dose [facility] cefTRIAXone (ROCEPHIN) 1,000 mg in water for injection, sterile 10 mL IV Push 07-15 04:00: 00 07-15 03:15 :00 No 1000mg 1,000 mg, Intravenou s, ONCE, 1 dose, On Sat07/14/24 at 2200, 10 mL, Reason for Anti-Infec tive: Empiric Therapy for Suspected Infection, Empiric Therapy Site: Abdominal, Duration of therapy: Once (ED) [facility] iopamidol (ISOVUE 370-500 mL) injection 85 mL 07-15 02:00: 00 07-15 02:00 :00 No [id number] 85mL 85 mL, Intravenou s, ONCE, 1 dose, On Sat07/14/24 at 2000, Routine [facility] NaCl 0.9% (NS) bolus infusion 1,000 mL 07-14 23:15: 07-15 01:03 :00 No 1000mL at 999 mL/hr, 1,000 mL, IV Infusion, ONCE, 1 dose, On Sat07/14/24 at 1715, STAT [facility] acetaminoph en (TYLENOL) tablet 1,000 mg 07-14 23:15: 07-14 23:06 :00 No 1000mg 1,000 mg, Oral, ONCE, 1 dose, On Sat07/14/24 at 1715, LJ [facility] amoxicillin -pot clavulanate 875-125 mg per tablet 07-14 00:00: 00 07-22 05:59 :00 No [id number] 1{tbl} Take 1 tablet by mouth in the morning and 1 tablet in the evening. Do all this for 7 days. [facility] metformin HCl (METFORMIN ORAL) 12-15 17:03: 04 Yes Take by mouth. [facility] GLIMEPIRIDE ORAL 12-15 17:03: 04 Yes Take by mouth. [facility] ibuprofen 400 mg tablet 12-15 17:03: 04 Yes 400mg Take 400 mg by mouth every 6 (six) hours as needed. [facility] metformin HCl (METFORMIN ORAL) 12-15 15:09: 54 Yes [facility]. [facility] GLIMEPIRIDE ORAL 12-15 15:09: 54 Yes Take by mouth. [facility] ibuprofen 400 mg tablet 12-15 15:09: 54 Yes 400mg Take 400 mg by mouth every 6 (six) hours as needed. [facility] 11 mL 12-15 14:48: 00 Yes PRN, Starting Sat12/16/19 at 0948, Until Discontinu ed, [facility] 11 mL 12-15 14:42: 00 Yes PRN, Starting Sat12/16/19 at 0942, Until Discontinu ed, Intra-op [facility] propofol IV infusion 12-15 14:30: 00 12-15 15:03 :26 No Intravenou s, ONCE INTRA PROCEDURE, Starting Sat12/16/19 at 0930, Until Sat12/16/19 at 1003, Routine, Intra-op [facility] remifentani l (ULTIVA) injection 12-15 14:24: 00 12-15 15:03 :26 No Intravenou s, ONCE INTRA PROCEDURE, Starting Sat12/16/19 at 0924, Until Sat12/16/19 at 1003, Routine, Intra-op [facility] midazolam (VERSED) injection 12-15 14:23: 00 12-15 15:03 :26 No IV Push, ONCE INTRA PROCEDURE, Starting Sat12/16/19 at 0923, Until Sat12/16/19 at 1003, Routine, Intra-op [facility] lactated ringers IV infusion 12-15 14:22: 00 12-15 15:03 :26 No IV Infusion, CONTINUOUS PRN, Starting Sat12/16/19 at 0922, Until Sat12/16/19 at 1003, Routine, Intra-op [facility] mydriatic #5 ophthalmic solution 0.5 mL syringe 12-15 13:00: 00 12-15 13:00 :00 No .5mL 0.5 mL, Right Eye, ONCE, 1 dose, Sat12/16/19 at 0800, Routine, DSU Pre-op [facility] lactated ringers IV infusion 1,000 mL 12-15 13:00: 00 12-15 12:58 :00 No 1000mL at 20 mL/hr, 1,000 mL, IV Infusion, ONCE, 1 dose, Sat12/16/19 at 0800, Routine, DSU Pre-op [facility] water for irrigation irrigation solution 12-15 12:56: 00 Yes PRN, Starting Sat12/16/19 at 0756, Until Discontinu ed, Routine, Intra-op [facility] sodium chloride (NS) injection 12-15 12:55: 00 Yes PRN, Starting Sat12/16/19 at 0755, Until Discontinu ed, Routine, Intra-op [facility] neomycin-po lymyxin-dex amethasone (MAXITROL) 3.5 mg/g-10,000 unit/g-0.1 % ophthalmic ointment 12-15 12:55: 00 Yes PRN, Starting Sat12/16/19 at 0755, Until Discontinu ed, Routine, Intra-op [facility] Hyaluronida se, Human Recomb. (HYLENEX) injection 12-15 12:55: 00 Yes PRN, Starting Sat12/16/19 at 0755, Until Discontinu ed, Routine, Intra-op [facility] gentamicin injection 12-15 12:54: 00 Yes PRN, Starting Sat12/16/19 at 0754, Until Discontinu ed, LJ, Intra-op [facility] eye block syringe 11 mL 12-15 12:54: 00 Yes PRN, Starting Sat12/16/19 at 0754, Until Discontinu ed, Intra-op [facility] EPINEPHrine 1:1,000 (1 mg/mL) (ADRENALIN) injection 12-15 12:54: 00 Yes PRN, Starting Sat12/16/19 at 0754, Until Discontinu ed, Routine, Intra-op [facility] DUOVISC (DUOVISC VISCO ELASTIC) 3 %-4 %(0.5 mL) 1 % (0.55 mL) intraocular injection 12-15 12:54: 00 Yes PRN, Starting Sat12/16/19 at 0754, Until Discontinu ed, Routine, Intra-op [facility] dexamethaso ne (DECADRON PHOSPHATE) injection 12-15 12:54: 00 Yes PRN, Starting Sat12/16/19 at 0754, Until Discontinu ed, Routine, Intra-op [facility] ceFAZolin (ANCEF) injection 12-15 12:53: 00 Yes PRN, Starting Sat12/16/19 at 0753, Until Discontinu ed, LJ, Intra-op [facility] carbachoL (MIOSTAT) 0.01 % intraocular injection 12-15 12:53: 00 Yes PRN, Starting Sat12/16/19 at 0753, Until Discontinu ed, Routine, Intra-op [facility] balanced salt irrig soln comb1 (BSS PLUS) ophthalmic solution 500 mL bag 12-15 12:53: 00 Yes PRN, Starting Sat12/16/19 at 0753, Until Discontinu ed, Routine, Intra-op [facility] GLIMEPIRIDE ORAL 12-15 12:03: 04 Yes Take by mouth. [facility] ibuprofen 400 mg tablet 12-15 12:03: 04 Yes 400mg Take 1 tablet by mouth every 6 hours as needed. [facility] metformin HCl (METFORMIN ORAL) 12-14 16:00: 04 Yes Take by mouth. [facility] GLIMEPIRIDE ORAL 12-14 16:00: 04 Yes Take by mouth. [facility] ibuprofen 400 mg tablet 12-14 16:00: 04 Yes 400mg Take 400 mg by mouth every 6 (six) hours as needed. [facility] No known medications No Un farshad [facility] No known medications No Un farshad [facility] No known medications No Un farshad ity [facility] No known medications No Un farshad ity [facility] No known medications No Un farshad ity [facility] No known medications No Un farshad ity [facility] Vital Signs Vital Name Observation Time Observation Value Comments S anni Systolic blood pressure 2024-12-02 14:30:00 124 mm[Hg] [facility] Diastolic blood pressure 2024-12-02 14:30:00 77 mm[Hg] [facility] Heart rate 2024-12-02 14:30:00 80 /min Unive [facility] Respiratory rate 2024-12-02 14:30:00 10 /min [facility] Oxygen saturation in Arterial blood by Pulse oximetry 2024-12-02 14:30:00 96 /min [facility] Body temperature 2024-12-02 14:15:00 36.56 Vero [facility] Body weight 2024-11-25 17:00:00 97.523 kg [facility] BMI 2024-11-25 17:00:00 31.75 kg/m2 [facility] Systolic blood pressure 2024-12-02 12:42:00 134 mm[Hg] [facility] Diastolic blood pressure 2024-12-02 12:42:00 86 mm[Hg] [facility] Heart rate 2024-12-02 12:42:00 78 /min [facility] Body temperature 2024-12-02 12:42:00 36.5 Vero [facility] Respiratory rate 2024-12-02 12:42:00 18 /min [facility] Oxygen saturation in Arterial blood by Pulse oximetry 2024-12-02 12:42:00 95 /min [facility] Body weight 2024-11-25 17:00:00 97.523 kg [facility] BMI 2024-11-25 17:00:00 31.75 kg/m2 [facility] Systolic blood pressure 2024-07-15 03:00:00 107 mm[Hg] [facility] Diastolic blood pressure 2024-07-15 03:00:00 65 mm[Hg] [facility] Heart rate 2024-07-15 03:00:00 102 /min Unive [facility] Body temperature 2024-07-15 03:00:00 37.33 Vero [facility] Respiratory rate 2024-07-15 03:00:00 16 /min [facility] Oxygen saturation in Arterial blood by Pulse oximetry 2024-07-15 03:00:00 95 /min [facility] Body height 2024-07-14 22:59:00 175.3 cm [facility] Body weight 2024-07-14 22:59:00 113.399 kg [facility] BMI 2024-07-14 22:59:00 36.92 kg/m2 [facility] Systolic blood pressure 2019-12-16 15:35:00 170 mm[Hg] [facility] Diastolic blood pressure 2019-12-16 15:35:00 80 mm[Hg] [facility] Heart rate 2019-12-16 15:35:00 68 /min Unive [facility] Respiratory rate 2019-12-16 15:35:00 18 /min [facility] Oxygen saturation in Arterial blood by Pulse oximetry 2019-12-16 15:15:00 99 /min [facility] Body temperature 2019-12-16 15:10:00 36.67 Vero [facility] Body weight 2019-12-15 15:00:00 104.327 kg [facility] BMI 2019-12-15 15:00:00 39.46 kg/m2 [facility] Body height 2019-12-04 16:11:00 162.6 cm [facility] Respiratory rate 2019-12-16 15:03:00 9 /min [facility] Procedures Procedure Date / Time Performed Performing Clinicia n Source [id number] - [place] XCAPSL CTRC RMVL INSJ IO LENS PROSTH W/O ECP 2024-12-02 13:32:00 Riaz Caceres [facility] POCT GLUCOSE (AUTOMATED) 2024-12-02 12:40:00 Riaz Caceres [facility] POCT GLUCOSE (AUTOMATED) 2024-12-02 12:40:00 Riaz Caceres [facility] TROPONIN I 2024-07-14 23:45:00 [facility] COMP. METABOLIC PANEL ([id number]) 2024-07-14 23:45:00 Ina Lea [facility] CBC WITH DIFF 2024-07-14 23:45:00 Singer Ina [facility] URINALYSIS 2024-07-14 23:45:00 [facility] INFLUENZA A/B RSV COVID NAAT 2024-07-14 23:45:00 Singer [facility] N-TERMINAL PRO-BNP 2024-07-14 23:45:00 Singer Ina [facility] POCT GLUCOSE(AGE >30DAYS) 2019-12-16 12:57:00 Kod[employer] Holman [facility] ASSIGNMENT OF BENEFITS 2019-12-15 16:20:07 Docto r Unassigned, [place] [facility] CONSENT/REFUSAL FOR DIAGNOSIS AND TREATMENT 2019-12-07 20:19:50 Doctor Unassigned, [place] [facility] ASSIGNMENT OF BENEFITS 2019-12-07 20:19:34 Docto r Unassigned, [place] [facility] NOTICE OF PRIVACY PRACTICES 2019-12-07 20:19:15 Doctor Unassigned, [place] [facility] CONSENT/REFUSAL FOR DIAGNOSIS AND TREATMENT 2019-12-07 20:19:04 Doctor Unassigned, [place] [facility] ASSIGNMENT OF BENEFITS 2019-12-07 20:18:48 Docto r Unassigned, [place] [facility] PHYSICIAN ORDERS 2019-12-07 05:01:00 Doctor Unas signed, [place] [facility] Encounters Start Date/Time End Date/Time Encounter Type Admission Type Attending Clinicians Care Facility Care Department Encounter ID Source 2021-03-17 09:17:38 Outpatient RIAZ WOLFE [facility] [id number] [facility] 2024-12-02 07:28:00 2024-12-02 09:39:00 Hospital Encounter Riaz Wolfe [facility] [id number] 350.1.13.10 4.2.7.2.686 [id number] [facility] 2024-12-02 08:25:00 2024-12-02 08:59:00 Surgery Riaz Caceres [facility] [id number] 350.1.13.10 4.2.7.2.686 [id number] [facility] 2024-07-14 17:02:00 2024-07-14 21:33:00 Emergency X INA LEA PHILLIP [facility] ERT [id number] [facility] 2024-07-14 17:02:00 2024-07-14 21:33:00 Emergency Ina Lea [facility] AT [facility] [id number] 350.1.13.10 4.2.7.2.686 [id number] [facility] 2019-12-16 07:38:00 2019-12-16 11:00:00 Hospital Encounter Riaz Caceres [facility] [place] 1.2.840.114 350.1.13.10 4.2.7.2.686 [id number] [facility] 2019-12-16 09:22:00 2019-12-16 10:03:00 Anesthesia [employer] Holman [facility] 1.2.840.114 350.1.13.10 4.2.7.2.686 [id number] [facility] 2019-12-15 11:45:00 2019-12-15 11:45:00 Outpatient R [facility] [id number] [facility] 2019-12-15 11:23:15 2019-12-15 11:36:05 Laboratory Only Only, Adc Test Riaz Caceres [facility] [id number] 350.1.13.10 4.2.7.2.686 [id number] [facility] 2019-12-15 00:00:00 2019-12-15 00:00:00 Orders Only Doctor Unassigned, [place] [facility] [id number] 350.1.13.10 4.2.7.2.686 [id number] [facility] 2019-12-09 00:00:00 2019-12-09 00:00:00 Telephone Tammy Molina [facility] 1..840.114 350.1.13.10 4.2.7.2.686 [id number] [facility] 2019-12-07 15:13:48 2019-12-07 15:42:09 Machine Fitter Visit Pob, Adc Lab Drew Riaz Caceres [facility] 1..840.114 350.1.13.10 4.2.7.2.686 [id number] [facility] 2019-12-07 10:30:00 2019-12-07 10:30:00 Outpatient R RIMA RIAZ [facility] [id number] [facility] Results Test Description Test Time Test Comments Results Result Co mments Source [facility] 12:45:19* Test Item Value Reference Range Interpretation Comme nts POCT GLU (test code = 0298692466) 249 mg/dL 70-110 H Lab Interpretation (test cod e = 84773-0) Abnormal [facility] [id number] 00:39:37* Test Item Value Reference Range Interpretation Comme [facility] TROPONIN I (test code = 0765568515) 0.004 ng/mL <=0.034 KENTRELL (test code = KENTRELL) Reference (Normal) Range (defined by the 99th percentile reference limit): <= 0.034 ng/mL Note: Cardiac troponin begins to rise 3-4 hours after the onset of ischemia. Repeat in 4-6 hours if the sample was drawn within 3-4 hours of the onset of the symptom and found normal. Diagnosis of myocardial injury is made with acute changes in cTn concentrations with at least one serial sample above the 99th percentile upper reference limit (URL), taken together with the patient's clinical presentation. Biotin has been reported to cause a negative bias, interpret results relative to patient's use of biotin. Lab Interpretation (test code = 20197-4) Normal [facility] Axf-[id number] 00:37:14* Test Item Value Reference Range Interpretation Comme nts NT-proBNP (test code = 43227-7) 49 pg/mL <=125 Lab Interpretation (test cod e = 68544-9) Normal [facility] Met[facility] (04565)2024-07-15 00:28:13* Test Item Value Reference Range Interpretation Comme nts NA (test code = 9226003643) 129 mmol/L 135-145 L K (test code = 4689015768) 4.0 mmol/L 3.5-5.0 CL (test code = 3435939165) 99 mmol/L 98-108 CO2 TOTAL (test code = 5769109795) 18 mmol/L 23-31 L AGAP (test code = 2794711200) 12 2-16 BUN (test code = 3563962020) 29 mg/dL 7-23 H GLUCOSE (test code = 4842902783) 315 mg/dL 70-110 H CREATININE (test code = 2160-0) 1.09 mg/dL 0.60-1.25 TOTAL BILI (test code = 7907081521) 0.7 mg/dL 0.1-1.1 CALCIUM (test code = 0150517767) 9.2 mg/dL 8.6-10.6 T PROTEIN (test code = 0341721298) 8.1 g/dL 6.3-8.2 ALBUMIN (test code = 9746444959) 4.3 g/dL 3.5-5.0 ALK PHOS (test code = 9670133408) 203 U/L 34-122 H ALTv (test code = 1742-6) 51 U/L 5-50 H AST(SGOT) (test code = 6735448891) 36 U/L 13-40 eGFR (test code = 68007-1) 75.8 mL/min/1.73m2 CKD-EPI eGFR (2020). Assuming creatinine has been stable day-to-day for at least three months, the eGFR indicates Category G2 (60 - 89 mL/min/1.73 m2) Lab Interpretation (test code = 62899-4) Abnormal [facility] with [id number] 00:15:11* Test Item Value Reference Range Interpretation Comme nts WBC (test code = 6690-2) 8.99 4.20-10.70 RBC (test code = 789-8) 4.88 4.26-5.52 HGB (test code = 718-7) 15.6 g/dL 12.2-16.4 HCT (test code = 4544-3) 44.0 % 38.4-49.3 MCV (test code = 787-2) 90.2 fL 81.7-95.6 MCH (test code = 785-6) 32.0 pg 26.1-32.7 MCHC (test code = 786-4) 35.5 g/dL 31.2-35.0 H RDW-SD (test code = 83284-7) 40.8 fL 38.5-51.6 RDW-CV (test code = 788-0) 12.4 % 12.1-15.4 PLT (test code = 777-3) 191 150-328 MPV (test code = 98039-4) 10.8 fL 9.8-13.0 NRBC/100 WBC (test code = 5243258389) 0.0 0.0-10.0 NRBC x10^3 (test code = 2916631122) See_Comment [Automated messa ge] The system which generated this result transmitted reference range: 10*3/?L. The reference range was not used to interpret this result as normal/abnormal. GRAN MAT (NEUT) % (test code = 770-8) 86.2 % IMM GRAN % (test code = 1314333582) 0.40 % LYMPH % (test code = 736-9) 7.2 % MONO % (test code = 5905-5) 5.8 % EOS % (test code = 713-8) 0.2 % BASO % (test code = 706-2) 0.2 % GRAN MAT x10^3(ANC) (test code = 9595984348) 7.74 10*3/uL 1.99-6.95 H IMM GRAN x10^3 (test code = 3704315885) 0.04 10*3/uL 0.00-0.06 LYMPH x10^3 (test code = 731-0) 0.65 10*3/uL 1.09-3.23 L MONO x10^3 (test code = 742-7) 0.52 10*3/uL 0.36-1.02 EOS x10^3 (test code = 711-2) 0.06-0.53 L BASO x10^3 (test code = 704-7) 0.01-0.09 Lab Interpretation (test code = 52102-4) [id number] 12:57:00* Test Item Value Reference Range Interpretation Comme nts POCT Glu (age>30days) (test code = 3342) 187 mg/dL 70-110 A Lab Interpretation (test cod e = 91594-7) Abnormal [facility] History and Physical Notes Date/Time Note Provider Source 2024-12-02 08:26:02 H&P Update H&P was reviewed and the patient was examined and there was no change in the patient's condition. [facility] - Health Notes Date/Time Note Provider Source 2024-11-25 12:16:34 Images from the original note were not included. Your cataract procedure is at [facility] on 12/02/24. The address is [address] [place] [address], [id number]. [facility] nursing staff will call you the workday prior to surgery/procedure between 12-3 pm with your arrival time. When you arrive, please come inside and sign in at the desk. Please note: You may not travel home alone and that includes in a taxi or by bus. We must speak to your Responsible Adult (who will be picking you up) the morning of your procedure, before the start of your procedure. This person must be an adult over the age of 18 years of age. Do not eat any solid food after midnight the night before surgery. May have 8-16 oz of water/clear liquids each hour after midnight, as desired, until two hours prior to arrival to promote hydration. You may take your medications with a sip of water as directed by physician. No eye makeup or false eyelashes. No lotions or perfumes. No antiperspirant/deodorant for breast or shoulder surgeries. Anticoagulants will be per physician guidance. Other medication Note(s)/Instructions:Instruc ronny to hold metformin and glimepiride morning of surgery. Pending screening, we may test for COVID. If a patient tests positive, their cases are cancelled and/or rescheduled. COVID SCREENING NOTE: Denies COVID symptoms, no testing required. Additional requests, questions, concerns:CB number and availability provided. Patient verbalized understanding of pre-op instructions and voiced no further questions at this time. [facility] 2024-07-14 21:32:44 Pt given printed and verbal discharge instructions regarding fever and diverticulitis, encouraged hydration, Prescriptions provided to preferred pharmacy Discussed antibiotic therapy and to take until all completed unless adverse reaction occurs - if occurs, discontinue medication and follow up with pcp/seek medical attention Pt verbalized understanding of instructions, pt awake alert oriented, resp reg unlabored, skin w/d, color appropriate for race, moves all ext well,pt encouraged to follow up with pcp Advised to seek medical attention for new/prolonged/worsening of symptoms No adverse reaction to meds given in ER noted upon discharge PIV d'cd, dressing to site, catheter in tact. Awake, alert oriented, resp reg unlabored, skin w/d, pt leaving amb with steady gait, in no apparent distress, INSPECTOR Maryanne Wild RN [facility] 2024-07-14 19:03:56 Report given to ERMIAS Flores IFER Fonseca RN [facility] 2024-07-14 17:00:58 CC: patient presents to the ER with complaints of fever that began three days ago. Patient states his feet "got cold and the cold went up my back making me sick." Awake, alert, oriented, resp reg unlabored, skin hot and dry, color appropriate for race, moves all ext without difficulty, amb without assistance. Appears in no distress. IFER Dodson RN [facility]
[2025-01-02 17:13] LABS: Absolute Lymphocytes (CBC) 1.9 K/uL (0.7-4.9); Hematocrit 43.7 % (39.6-49.0); Hemoglobin 15.3 g/dL (13.6-17.9); MCH 32.4 pg (27.0-35.0); MCHC 34.9 g/dL (32.0-36.0); MCV 92.7 fL (80-100); MPV 8.6 fL (7.6-11.3); Nucleated RBC Absolute Count 0.0 (0-0); Nucleated Red Blood Cells % 0.1 % (0-0); RBC Red Blood Cell Count 4.71 M/uL (4.33-5.43); White Blood Count 6.20 thou/uL (4.3-10.9)
[2025-01-02] MEDS ORDERED: NA CHLORIDE 0.9% 1,000 ML ONE (17:29)
[2025-01-02 17:40] LABS: PT Prothrombin Time 10.8 SECONDS (10-13.0); Protime INR 0.95
[2025-01-02 18:00] LABS: ALT/SGPT 47 U/L (16-61); Albumin 3.5 g/dL (3.4-5.0); Albumin/Globulin Ratio 0.9 (1.1-1.8); Alkaline Phosphatase 109 U/L (45-117); Anion Gap 12.9 mEq/L (5.0-15.0); BUN Blood Urea Nitrogen 28 mg/dL (7-18); Globulin 4.0 g/dL (2.3-3.5); Glucose Level 337 mg/dL (74-106); Troponin High Sensitivity 7.4 pg/mL (<58.9)
[2025-01-02 18:01] LABS: AST/SGOT 24 U/L (15-37); Bilirubin Indirect, Calculated 0.3 mg/dL (0.2-0.8); Magnesium 1.9 mg/dL (1.6-2.4); Potassium 3.9 mEq/L (3.5-5.1)
--- NOTE | 2025-01-02 18:48 | RAD REPORT ---
EXAM: CT brain without contrast HISTORY: Dizziness COMPARISON: 2022 TECHNIQUE: Multiple contiguous axial images were obtained and a CT of the brain without contrast.. Sagittal and coronal reconstruction performed. Automated exposure control, adjustment of the mA and/or kV according to patient size, and/or iterative reconstruction. Unless otherwise specified, incidental f indings do not require dedicated imaging follow-up FINDINGS: An intracranial bleed is not seen Ventricles are normal caliber No extra-axial fluid collection noted No significant hypodensity within the brain No fluid within the visualized sinuses or mastoids noted. IMPRESSION: No acute intracranial abnormality noted. If the patient continues to have symptoms to suggest an acute intracranial abnormality then MRI of th e brain would be recommended.
--- NOTE | 2025-01-02 20:26 | ER ---
Nurse's Notes [facility] Name: Josh Sanchez Age: 64 yrs Sex: Male : 1960 Arrival Date: 01/02/2025 Time: 15:58 Bed 16 Private MD: Diagnosis: Dizziness and giddiness;Diabetes mellitus due to underlying condition with hyperglycemia Presentation: 01/02 16:19 Chief complaint: Patient states: C/O feeling light-headed and diaphoretic since ar8 yesterday. Patient states that he checked his BG and it was \R\900 45 min ago. He self medicated with 20 units of his insulin. FSBG 364 in triage. Coronavirus screen: At this time, the client does not indicate any symptoms associated with coronavirus-19. Ebola Screen: No symptoms or risks identified at this time. Initial Sepsis Screen: Does the patient meet any 2 criteria? No. Patient's initial sepsis screen is negative. Does the patient have a suspected source of infection? No. Patient's initial sepsis screen is negative. Risk Assessment: Do you want to hurt yourself or someone else? Patient reports no desire to harm self or others. Onset of symptoms was January 01, 2025. 16:19 Method Of Arrival: Ambulatory ar8 16:19 Acuity: KAYDEN 2 ar8 Triage Assessment: 16:25 General: Appears in no apparent distress. Behavior is calm, cooperative. Pain: ar8 Complains of pain in generalized body aches. Historical: - Allergies: 16:25 No Known Allergies; ar8 - PMHx: 16:25 Cerebrovascular accident; Diabetes - NIDDM; Hypertensive disorder; ar8 - Immunization history:: Adult Immunizations up to date. - Infectious Disease History:: Denies. - Social history:: Smoking status: Patient denies any tobacco usage or history of. Screenin:[address] [facility] ED Fall Risk Assessment (Adult) History of falling in the last 3 months, kc6 including since admission No falls in past 3 months (0 pts) Confusion or Disorientation No (0 pts) Intoxicated or Sedated No (0 pts) Impaired Gait No (0 pts) Mobility Assist Device Used No (0 pt) Altered Elimination No (0 pt) Score/Fall Risk Level 0 - 2 = Low Risk Oriented to surroundings. Abuse screen: Denies threats or abuse. Denies injuries from another. Nutritional screening: No deficits noted. Tuberculosis screening: No symptoms or risk factors identified. Assessment: 17:00 General: Appears in no apparent distress. comfortable, well groomed, well developed, kc6 Behavior is calm, cooperative, appropriate for age. Pain: Denies pain. Neuro: Level of Consciousness is awake, alert, obeys commands, Oriented to person, place, time, situation, Appropriate for age Reports dizziness. Cardiovascular: Capillary refill < 3 seconds. Respiratory: Airway is patent Trachea midline Respiratory effort is even, unlabored, Respiratory pattern is regular, symmetrical. GI: No signs and/or symptoms were reported involving the gastrointestinal system. : No signs and/or symptoms were reported regarding the genitourinary system. EENT: No signs and/or symptoms were reported regarding the EENT system. Derm: Skin is intact, is healthy with good turgor, Skin is pink, warm \T\ dry. Musculoskeletal: No signs and/or symptoms reported regarding the musculoskeletal system. Circulation, motion, and sensation intact. Range of motion: intact in all extremities. 18:20 Reassessment: Patient appears in no apparent distress at this time. No changes from kc6 previously documented assessment. Patient and/or family updated on plan of care and expected duration. Pain level reassessed. Patient is alert, oriented x 3, equal unlabored respirations, skin warm/dry/pink. Patient denies pain at this time. Patient states feeling better. Patient states symptoms have improved. Vital Signs: 16:19 BP 159 / 102; Pulse 89; Resp 22; Temp 98.2(O); Pulse Ox 98% on R/A; Weight 99.79 kg; ar8 Height 5 ft. 3 in. ; Pain 5/10; 17:26 BP 122 / 79; Pulse 89; Resp 18 S; Pulse Ox 97% on R/A; kc6 18:20 BP 138 / 85; Pulse 79; Resp 16 S; Pulse Ox 98% on R/A; kc6 19:12 BP 159 / 92; Pulse 75; Resp 19; Pulse Ox 100% on R/A; hm5 20:00 BP 176 / 86; Pulse 77; Resp 19; Pulse Ox 97% on R/A; hm5 20:37 BP 164 / 92; Pulse 76; Resp 18; Pulse Ox 99% on R/A; hm5 16:19 Body Mass Index 38.97 (99.79 kg, 160.02 cm) ar8 16:19 Pain Scale: Adult ar8 ED Course: 16:02 Patient arrived in ED. ts1 16:02 Ciro Dasilva PA is PHCP. cp 16:02 Ade Bolaños MD is Attending Physician. cp 16:25 Triage completed. ar8 16:25 Arm band placed on right wrist. ar8 16:56 Lidia Magaña, RN is Primary Nurse. kc6 17:05 Patient has correct armband on for positive identification. Bed in low position. Call kc6 light in reach. Side rails up X 1. Adult w/ patient. executive vp on. Pulse ox on. NIBP on. Door closed. Noise minimized. Lights dimmed. Warm blanket given. Pillow given. Verbal reassurance given. 17:05 Inserted saline lock: 20 gauge in left antecubital area, using aseptic technique. Blood ts3 collected. Flushed with 10 mL NS. 17:05 Initial lab(s) drawn, by chemical laboratory assistant, sent to lab. ts3 17:05 EKG done, by residential appliance repair technician. ts3 17:05 Patient maintains SpO2 saturation greater than 95% on room air. kc6 18:34 CT Head Brain wo Cont In Process Unspecified. EDMS 19:11 Provided Education on: plan of care. [facility] 19:11 No provider procedures requiring assistance completed. 5 19:39 Donna Brandon, RN is Primary Nurse. 5 Administered Medications: 17:44 Drug: NS 0.9% IV 1000 ml IV at 1000 ml once; to be given as a bolus over 60 minutes [facility] Route: IV; Rate: 1000 ml; Site: left antecubital; 19:05 Follow up: IV Status: Completed infusion; IV Intake: 1000ml [facility] Medication: 19:11 VIS not applicable for this client. 5 Intake: 19:05 IV: 1000ml; Total: 1000ml. [facility] Outcome: 20:26 Discharge ordered by . cp 20:44 Patient left the ED. [facility] Signatures: Dispatcher [employer] EDSC Ciro Dasilva PA-C PA-C cp Campbell, Kaitlyn, RN RN kc6 Georgiana Clemens PAS PAS ts1 Donna Brandon, RN RN 5 Naomi Brown ts3 Parmjit, Raimundo, RN RN ar8 Corrections: (The following items were deleted from the chart) 16:29 16:19 Chief complaint: Patient states: C/O feeling light-headed and diaphoretic since ar8 yesterday. Patient states that he checked his BG and it was \R\900 45 min ago. He self medicated with his insulin. FSBG 364 in triage ar8 19:24 19:12 BP 137 / 69; Pulse 83bpm; Resp 18bpm; Pulse Ox 100% RA; hm5 hm5
--- NOTE | 2025-01-02 20:26 | EDPHYS ---
Physician Documentation [facility] Name: Josh Sanchez Age: 64 yrs Sex: Male : 1960 Arrival Date: 01/02/2025 Time: 15:58 Bed 16 Private MD: ED Physician Ade Bolaños HPI: 01/02 16:40 This 64 yrs old Male presents to ER via Ambulatory with complaints of High cp Blood Sugar, Dizziness. 16:40 The patient or guardian reports hyperglycemia, that was potentially precipitated by cp recent change in medication. 16:40 Patient is a 64-year-old man with past medical history significant for diabetes and cp hypertension who presents to the emergency department with complaints of hyperglycemia and dizziness. Patient reports she recently stopped taking his Ozempic injections due to the side effects of hip and joint pain. He checked his blood sugars today and noticed that they were above 900 so he gave himself 20 units of previously prescribed insulin prior to presenting to the emergency department. Patient complains of dizziness lightheadedness. Denies any chest and/or abdominal pain, denies any fever and/or shortness of breath and reports otherwise feels well. Historical: - Allergies: 16:25 No Known Allergies; ar8 - PMHx: 16:25 Cerebrovascular accident; Diabetes - NIDDM; Hypertensive disorder; ar8 - Immunization history:: Adult Immunizations up to date. - Infectious Disease History:: Denies. - Social history:: Smoking status: Patient denies any tobacco usage or history of. ROS: 16:45 Constitutional: Negative for body aches, chills, fever, poor PO intake, cp 16:45 Eyes: Negative for injury, pain, redness, and discharge, cp 16:45 Cardiovascular: Negative for chest pain, edema, palpitations, 16:45 Respiratory: Negative for cough, shortness of breath, wheezing, 16:45 Abdomen/GI: Negative for abdominal pain, vomiting, diarrhea, constipation, 16:45 Skin: Negative for cellulitis, rash, 16:45 Neuro: Positive for dizziness, Negative for altered mental status, headache, numbness, syncope, near syncope, weakness, 16:45 All other systems are negative, Exam: 16:50 Constitutional: The patient appears in no acute distress, alert, awake, cp non-diaphoretic, non-toxic, well developed, well nourished, 16:50 Head/Face: Normocephalic, atraumatic. cp 16:50 Eyes: Periorbital structures: appear normal, Pupils: equal, round, and reactive to light and accomodation, Extraocular movements: intact throughout, Conjunctiva: normal, no exudate, no injection, Sclera: no appreciated abnormality, Lids and lashes: appear normal, bilaterally, 16:50 ENT: External ear(s): are unremarkable, Nose: is normal, Mouth: Lips: moist, Oral mucosa: moist, Posterior pharynx: Airway: no evidence of obstruction, patent, erythema, is not appreciated, exudate, is not appreciated, 16:50 Neck: ROM/movement: is normal, is supple, without pain, no range of motions limitations, 16:50 Chest/axilla: Inspection: normal, 16:50 Cardiovascular: Rate: normal, Rhythm: regular, Edema: is not appreciated, JVD: is not appreciated, 16:50 Respiratory: the patient does not display signs of respiratory distress, Respirations: normal, no use of accessory muscles, no retractions, labored breathing, is not present, Breath sounds: are clear throughout, no decreased breath sounds, no stridor, no wheezing, 16:50 Abdomen/GI: Inspection: abdomen appears normal, Palpation: abdomen is soft and non-tender, in all quadrants, 16:50 Back: pain, is absent, ROM is normal, 16:50 Skin: cellulitis, is not appreciated, no rash present. 16:50 Neuro: Orientation: to person, place \T\ time. Mentation: is normal, Cerebellar function: is grossly normal, Motor: moves all fours, strength is normal, Sensation: is normal, 16:57 ECG was reviewed by the Attending Physician. cp Vital Signs: 16:19 BP 159 / 102; Pulse 89; Resp 22; Temp 98.2(O); Pulse Ox 98% on R/A; Weight 99.79 kg; ar8 Height 5 ft. 3 in. ; Pain 5/10; 17:26 BP 122 / 79; Pulse 89; Resp 18 S; Pulse Ox 97% on R/A; kc6 18:20 BP 138 / 85; Pulse 79; Resp 16 S; Pulse Ox 98% on R/A; kc6 19:12 BP 159 / 92; Pulse 75; Resp 19; Pulse Ox 100% on R/A; hm5 20:00 BP 176 / 86; Pulse 77; Resp 19; Pulse Ox 97% on R/A; hm5 20:37 BP 164 / 92; Pulse 76; Resp 18; Pulse Ox 99% on R/A; hm5 16:19 Body Mass Index 38.97 (99.79 kg, 160.02 cm) ar8 16:19 Pain Scale: Adult ar8 MDM: 20:25 Data reviewed: vital signs, nurses notes, lab test result(s), EKG, radiologic studies, cp CT scan, and as a result, I will discharge patient. 20:25 Differential diagnosis: DKA, electrolyte abnormality, acute [place]. I considered the cp following discharge prescriptions or medication management in the emergency department Medications were administered in the Emergency Department. See MAR. Independent interpretation of the following test(s) in the Emergency Department EKG: See my EKG interpretation above. Care significantly affected by the following chronic conditions: Diabetes, Hypertension. Counseling: I had a detailed discussion with the patient and/or guardian regarding the historical points, exam findings, and any diagnostic results supporting the discharge/admit diagnosis, lab results, radiology results, the need for outpatient follow up, a family practitioner, to return to the emergency department if symptoms worsen or persist or if there are any questions or concerns that arise at home. Response to treatment: the patient's symptoms have markedly improved after treatment, and as a result, I will discharge patient. 20:26 Medical Screening Exam initiated 01/02 16:36 Order name: Basic Metabolic Panel; Complete Time: 18:05 01/02 18:05 Interpretation: Normal except: GLUC 337; BUN 28; GFR 62. 01/02 16:36 Order name: CBC with Diff; Complete Time: 17:27 01/02 16:36 Order name: LFT's; Complete Time: 18:05 01/02 16:36 Order name: Magnesium; Complete Time: 18:05 01/02 16:36 Order name: PT-INR; Complete Time: 18:05 01/02 16:36 Order name: Troponin HS; Complete Time: 18:05 01/02 16:42 Order name: Glucose, Ancillary Testing; Complete Time: 17:27 EDMS 01/02 20:17 Order name: Glucose, Ancillary Testing; Complete Time: 20:19 EDGA 01/02 18:06 Order name: CT Head Brain wo Cont; Complete Time: 19:16 01/02 16:17 Order name: Accucheck Blood Glucose; Complete Time: 16:44 01/02 16:36 Order name: Cardiac monitoring; Complete Time: 16:57 01/02 16:36 Order name: EKG - Nurse/Tech; Complete Time: 16:57 01/02 16:36 Order name: IV Saline Lock; Complete Time: 17:05 01/02 16:36 Order name: Labs collected and sent; Complete Time: 17:05 01/02 16:36 Order name: O2 Per Protocol; Complete Time: 16:57 01/02 16:36 Order name: O2 Sat Monitoring; Complete Time: 16:57 01/02 19:39 Order name: Accucheck Blood Glucose; Complete Time: 20:06 cp EC:57 Rate is 86 beats/min. Rhythm is regular. IN interval is normal. QRS interval is normal. cp QT interval is normal. T waves are Inverted in lead aVR. Interpreted by me. Reviewed by me. Administered Medications: 17:44 Drug: NS 0.9% IV 1000 ml IV at 1000 ml once; to be given as a bolus over 60 minutes kc6 Route: IV; Rate: 1000 ml; Site: left antecubital; 19:05 Follow up: IV Status: Completed infusion; IV Intake: 1000ml hm5 Disposition Summary: 01/02/25 20:26 Discharge Ordered Notes: Location: Home cp Problem: new cp Symptoms: have improved cp Condition: Stable cp Diagnosis - Dizziness and giddiness cp - Diabetes mellitus due to underlying condition with hyperglycemia cp Followup: cp - With: Private Physician - When: 2 - 3 days - Reason: Recheck today's complaints Discharge Instructions: - Discharge Summary Sheet cp - Type 2 Diabetes Mellitus, Diagnosis, Adult cp - Dizziness cp - Hyperglycemia cp - Daily Diabetes Mellitus Record cp - Blood Glucose Monitoring, Adult cp - Diabetes Mellitus and Nutrition, Adult cp - Aspirin and Your Heart cp Forms: - Medication Reconciliation Form cp - Antibiotic Education cp - Prescription Opioid Use cp - Patient Portal Instructions cp - Leadership Thank You Letter cp Signatures: Dispatcher [employer] EDGA Ciro Dasilva PA-C PA-C cp Campbell, Kaitlyn RN RN kc6 Raimundo Parnell RN RN ar8 Donna Brandon RN hm5 Corrections: (The following items were deleted from the chart) 16:36 16:36 Chest Single View+RAD.RAD.[email or web address] ordered. EDMS EDMS
[2025-01-03 04:16] VITALS: TEMP 98.2
[2025-01-03 04:25] VITALS: BP 164/92; O2SAT 99
== END 2025-01-02 20:44 | disposition home or self-care (01) ==
LOC: ER 15:58
DX: E11.65 Type 2 diabetes mellitus with hyperglycemia (principal)
CPT/HCPCS: 93005; 85025; 80048; 36415; 83735; 85610; 82947 ×2; 80076; 84484; 70450; 96360; 99285; Q9967; J7030